=== PATIENT | female | born 1935 | race Caucasian/White ===

== ENCOUNTER → 2017-04-17 | Outpatient (CLI) | payer OTHER, MEDICARE | LOC: FIMAGING 13:35 | PROVIDERS: ATTEND Physical Medicine & Rehabilitation | DX: R90.82 White matter disease, unspecified (principal); M51.36 Other intervertebral disc degeneration, lumbar region; M53.87 Other specified dorsopathies, lumbosacral region; M76.891 Other specified enthesopathies of right lower limb, excluding foot; M76.892 Other specified enthesopathies of left lower limb, excluding foot ==

== ENCOUNTER 2017-06-23 06:55 | Inpatient (IN) | payer OTHER, MEDICARE ==
[~2017-06-23 06:55] MED LIST: DESMOPRESSIN ACETATE 20 MCG in NS 50 ML IV ONE
[2017-06-23] MEDS ORDERED: ceFAZolin 2 GM/SWFI 2 GM/20 ML SYR IVP ONE (07:01)
[2017-06-23] MEDS ORDERED: LR 1,000 ML IV ONE (07:05)
[2017-06-23] MEDS ORDERED: LIDOCAINE 1% 2 ML INJ ID PRN (07:05)
--- NOTE | 2017-06-23 07:40 | CPEKG ---
Heart Rate: 63 RR Interval: 952 P-R Interval: 200 QRSD Interval: 142 QT Interval: 444 QTC Interval: 455 P Nye: 77 QRS Nye: 74 T Wave Nye: -10 EKG Severity - ABNORMAL ECG - EKG Impression: SINUS RHYTHM EKG Impression: RIGHT BUNDLE BRANCH BLOCK Electronically Signed By: Rojas Valerio 24-Jun-2017 09:28:44
[2017-06-23] MEDS ORDERED: SURGIFLO MATRIX KIT WITH THROMBIN 8 ML TP ONE (07:53)
[2017-06-23] MEDS ORDERED: BUPIVACAINE 0.25% 30 ML SDV ONE (07:54)
[2017-06-23] MEDS ORDERED: EPINEPHrine 1 MG/ML INJ ONE (07:54)
[2017-06-23] MEDS ORDERED: CHLORHEXIDINE GLUC HIBICLENS 118 ML BTL TP ONE (07:54)
[2017-06-23] MEDS ORDERED: GENTAMICIN SULFATE 80 MG/2 ML VIAL ONE (07:54)
[2017-06-23] MEDS ORDERED: THROMBIN (BOVINE) 5,000 UNIT VIAL TP ONE (07:54)
--- NOTE | 2017-06-23 08:03 | PDHPUP ---
History & Physical Update H&P update statement: This history and physical update is based on an assessment of the patient which was completed after admission or registration (within 24 hours), but prior to the surgery/procedure. H&P update: H&P reviewed & patient examined, no change in patient's condition since H&P completed
[2017-06-23 08:19] LABS: PLATELET COUNT 247 10^3/uL (150-400)
[2017-06-23] MEDS ORDERED: PROPOFOL/EMULSION 500 MG/50 ML BOTTLE IV ONE (08:19)
[2017-06-23] MEDS ORDERED: MIDAZOLAM 2 MG/2 ML VIAL ONE (08:19)
[2017-06-23] MEDS ORDERED: fentaNYL 250 MCG/5 ML INJ ONE (08:20)
[2017-06-23] MEDS ORDERED: MIDAZOLAM 2 MG/2 ML VIAL IVP ONE (11:11)
[2017-06-23] MEDS ORDERED: HYDROCODONE/APAP 5/325 TAB PO PRN (11:14)
[2017-06-23] MEDS ORDERED: ONDANSETRON 4 MG/2 ML VIAL IVP PRN (11:14)
[2017-06-23] MEDS ORDERED: NALOXONE HCL 0.4 MG/ML INJ IVP PRN (11:14)
[2017-06-23] MEDS ORDERED: DEXAMETHASONE 4 MG/ML VIAL IVP PRN (11:14)
[2017-06-23] MEDS ORDERED: ALBUTEROL 3 ML DEYVIAL IH PRN (11:14)
[2017-06-23] MEDS ORDERED: fentaNYL 100 MCG/2 ML INJ IVP PRN (11:14)
[2017-06-23] MEDS ORDERED: LABETALOL HCL 5 MG/ML 20 ML MDV IVP PRN (11:14)
--- NOTE | 2017-06-23 11:14 | PDANEPAE ---
ANE History of Present Illness 81 year old woman with bipolar disorder for L1-2 and L4-5 decompression to treat severe spinal stenosis. ANE Past Medical History - Cardiovascular History Hx Hypertension: No Hx Arrhythmias: Yes Hx Chest Pain: No Hx Coronary Artery / Peripheral Vascular Disease: No Hx CHF / Valvular Disease: No Hx Palpitations: No Cardiovascular History Comment: heart murmur reported on H&P on from dgtr - Pulmonary History Hx COPD: No Hx Asthma/Reactive Airway Disease: Yes Hx Recent Upper Respiratory Infection: No Hx Oxygen in Use at Home: No Hx Sleep Apnea: No Sleep Apnea Screening Result - Last Documented: Negative Pulmonary History Comment: hx of asthma- nothing recently - Neurologic History Hx Cerebrovascular Accident: No Hx Seizures: No Hx Dementia: No Neurologic History Comment: increase in memory issues/ confusion at times. left leg weakness. headaches - Endocrine History Hx Diabetes: No Endocrine History Comment: thyroid levels are usually on low end of normal, on synthroid to help with energy from medications - Renal History Hx Renal Disorders: Yes Renal History Comment: increase in urine incontinence. over last 6-9 months- wears pad. can't hold urine mostly. hx of uti's - Liver History Hx Hepatic Disorders: No - Neurological & Psychiatric Hx Hx Neurological and Psychiatric Disorders: Yes Neurological / Psychiatric History Comment: bipolar. depression. anxiety - Cancer History Hx Cancer: Yes Cancer History Comment: skin ca removed - Congenital Disorder History Hx Congenital Disorders: No - GI History Hx Gastrointestinal Disorders: Yes Gastrointestinal History Comment: occ constipation- dgtr reports cupboards full of otc products - Other Health History Other Health History: anemia. wears glasses. blind in right eye. eczema- currently no active spots - Chronic Pain History Chronic Pain: Yes (chronic back and bilateral leg) - Surgical History Prior Surgeries: bilateral TKA's. bilateral NAJMA's. hysterectomy. corneal transplant eye surgery. blas KARLEE Review of Systems Review of systems is: negative Review of Systems: - Exercise capacity METS (RN): 3 METS ANE Patient History - Allergies Allergies/Adverse Reactions: codeine Allergy (Verified 06/22/17 14:31) Itching - Home Medications Home Medications: Carboxymethylcellulose 0.5% [Refresh Plus Drops 0.5%] 1 drops EACHEYE DAILY PRN 06/22/17 [Last Taken 06/22/17] Erythromycin 0.5% [Erythromycin 0.5% (RX)] 1 ping EACHEYE HS 06/22/17 [Last Taken 06/22/17] Herbals/Supplements -Info Only 1 ea PO DAILY 06/22/17 [Last Taken 06/22/17] Levothyroxine [Synthroid 50 mcg (*)] 50 mcg PO DAILY06 06/22/17 [Last Taken 06:30] QUEtiapine FUMARATE [Seroquel 300mg (*)] 300 mg PO HS 06/22/17 [Last Taken 06/22] celeCOXIB [Celebrex (*)] 200 mg PO BID 06/22/17 [Last Taken 06/21/17] clonazePAM [Klonopin (*)] 0.5 mg PO Q12H PRN 06/22/17 [Last Taken 06/22/17] clonazePAM [Klonopin (*)] 0.5 mg PO QID 06/22/17 [Last Taken 06/23/17 06:30] lamoTRIgine [LamICTAL 100 MG (*)] 400 mg PO HS 06/22/17 [Last Taken 06/22/17] - NPO status NPO Since - Liquids (Date): 06/23/17 NPO Since - Liquids (Time): 23:59 NPO Since - Solids (Date): 06/22/17 NPO Since - Solids (Time): 19:30 - Smoking Hx Smoking Status: Former smoker - Family Anes Hx Family Hx Anesthesia Complications: none ANE Labs/Vital Signs - Labs Result Diagrams: 06/23/17 08:10 - Vital Signs Blood Pressure: 129/65 Heart Rate: 64 Respiratory Rate: 18 O2 Sat (%): 94 Height: 157.48 cm Weight: 66.678 kg ANE Physical Exam - Airway Neck exam: decreased ROM Mallampati Score: Class 2 Mouth exam: normal dental/mouth exam - Pulmonary Pulmonary: no respiratory distress - Cardiovascular Cardiovascular: regular rate and rhythym - ASA Status ASA Status: III ANE Anesthesia Plan Anesthesia Plan: general endotracheal anesthesia
[2017-06-23] MEDS ORDERED: CARBOXYMETHYLCELLULOSE 0.5% 0.4 ML DROPERETTE EACHEYE PRN (11:20)
[2017-06-23] MEDS ORDERED: diphenhydrAMINE 25 MG CAP PO PRN (11:21)
[2017-06-23] MEDS ORDERED: BISACODYL 10 MG SUPP PR PRN (11:21)
[2017-06-23] MEDS ORDERED: LACTULOSE 20 GM/30 ML UDCUP PO PRN (11:21)
[2017-06-23] MEDS ORDERED: MAGNESIUM HYDROXIDE 30 ML UDCUP PO PRN (11:21)
[2017-06-23] MEDS ORDERED: NS W/ 20 KCl/L 1,000 ML IV SCH (11:30)
--- NOTE | 2017-06-23 11:41 | POSTOPPROG ---
Post Op Note Date of Operation: 06/23/17 Surgeon: Angy Minor Hip Hop Dance Instructor: Annette Miranda PA-C Anesthesiologist: Dr. Rocha Anesthesia: GET(General Endotracheal) Pre-op Diagnosis: Lumbar stenosis Post-op Diagnosis: Lumbar stenosis Procedure: L1/2 and L4/5 decompression Inf/Abcess present in the surg proc area at time of surgery?: No Depth: Deep Incisional (Fascial) EBL: Minimal Plan Plan: 81 yo female s/p leftL1/2 and L4/5 decompression - neuro checks - pain control - advance diet as tolerated - PT/OT - discharge home likely tomorrow Exam Awake. Alert Following commands strength full
--- NOTE | 2017-06-23 11:42 | GOP ---
[f rep st] OPERATIVE REPORT DATE OF OPERATION: 06/23/2017 SURGEON: Angy Minor DO NEUROSURGEON: Angy Minor DO BUSINESS REPORTING DEVELOPER: ROMAINE Patrick PREOPERATIVE DIAGNOSIS: 1. Critical stenosis. 2. Lumbago. 3. Spondylosis. 4. Urinary incontinence. POSTOPERATIVE DIAGNOSIS: 1. Critical stenosis. 2. Lumbago. 3. Spondylosis. 4. Urinary incontinence. PROCEDURE PERFORMED: 1. L4-5 left micro decompression corey laminectomy, foraminotomy and micro decompression, through a s eparate incision L1 to hemilaminotomy micro decompression foraminotomy left. 2. Microscope. FINDINGS: SPECIMENS: None. ESTIMATED BLOOD LOSS: 15 mL. INDICATIONS: This is an 81-year-old female, who has 3 months of urinary incontinence. Her leg buckl es, although she has no static weakness. She has back pain. She was offered a micro decompression a t L1-2, a hemilaminectomy and micro decompression at L1-2 and L4-5, where she had critical stenosis a t both levels. She elected to move forward. Extensive discussion was held with her and several of h er family members regarding risks, benefits, alternatives and expected outcomes. She elected to move forward as today. DESCRIPTION OF PROCEDURE: She was identified, consented. Sites were marked. Brought to the operati ng room, anesthetized under general endotracheal tube anesthesia, rolled onto the OR bed with a Wil n frame. All pressure points were appropriately padded. Incision sites were marked with the 18-gaug e spinal needle and x-ray. L4-5 was approached 1st. Incision was anesthetized with 0.5% Marcaine wi th epinephrine. Incision was made with a 10 blade. Hemostasis was obtained with Bovie and bipolar c autery, dissecting down onto the laminae of L4 and L5. ShadowLine retractor was placed and [place] 4 was placed, verifying that we were at the appropriate level. Brought in the microscope. Using a h igh-speed drill, created a laminectomy at L4 and L5, opening the ligamentum flavum with a ball-tip pr obe and using 2 and 3 Kerrisons extended this until we had a generous foraminotomy. We had undercut the lamina and verified under x-ray that we had decompressed pedicle to pedicle. We then copiously i rrigated with gentamicin infused saline. Meticulous hemostasis was obtained with FloSeal and bipolar cautery, and then we removed the ShadowLine retractor, removed the microscope, closed the fascia wit h 0 Vicryl pop-offs, subcutaneous layer with 2-0 Vicryl pop-offs, cutaneous layer with 3-0 Vicryl pop -offs. The skin was closed with a 4-0 running Monocryl. We covered this then with gauze and moved u p and, under a separate incision anesthetized with 0.5% Marcaine with epinephrine, incision was made with a 10 blade. Hemostasis was obtained with Bovie and bipolar cautery, dissecting down onto the la minae of L1-2. ShadowLine retractor was measured and placed, and the [place] 4 was placed. Did caden e an x-ray, x-ray verified we were at the appropriate level. The microscope was brought, in using hi gh-speed drill performed a hemilaminectomy at L1-2, opening the ligamentum flavum with a ball-tip pro be and using 2 and 3 Kerrisons to extend this until we had generous foraminotomy, and we were decompr essed again under x-ray pedicle to pedicle. We then undercut the lamina at the midline. We then obt ained meticulous hemostasis with FloSeal, and copiously irrigated with over a liter of gentamicin-inf used saline. Removed the ShadowLine retractor. Closed the fascia with 0 Vicryl pop-offs, subcutaneo us layer with 2-0 Vicryl pop-offs, cutaneous layer with 3-0 Vicryl pop-offs. The skin was closed wit h 4-0 running Monocryl. Both wounds were dressed with Steri strips, gauze and Tegaderm. Patient gisselle erated the procedure well. Neuro monitoring remained stable. There were no complications. FLUIDS: 1100 mL of crystalloid. URINE OUTPUT: None. DRAINS: None. COMPLICATIONS: None. /[id number]/MODL
[2017-06-23] MEDS ORDERED: fentaNYL 100 MCG/2 ML INJ ONE (11:56)
--- NOTE | 2017-06-23 12:03 | POSTANESTH ---
Post Anesthetic Evaluation Cardiovascular Status: Normal, Stable Respiratory Status: Normal, Stable Level of Consciousness/Mental Status: Mildly Sleepy, Arousable Pain Control: Adequate, Prn Tx Ordered Nausea/Vomiting Control: Adequate, Prn Tx Ordered Complications Possibly Related to Anesthesia: None Noted
[2017-06-23] MEDS: ACETAMINOPHEN 500 MG TAB PO SCH ×2 (14:29→21:22)
[2017-06-23] MEDS: traMADol 50 MG TAB PO PRN (15:57)
[2017-06-23] MEDS: clonazePAM 0.5 MG TAB PO SCH ×2 (15:57→21:22)
[2017-06-23] MEDS: ceFAZolin 2 GM/DEXTROSE 100 ML IV SCH (17:21)
[2017-06-23] MEDS: ERYTHROMYCIN 0.5% 1 GM OPHT.OINT EACHEYE SCH (21:21)
[2017-06-23] MEDS: lamoTRIgine 100 MG TAB PO SCH (21:22)
[2017-06-23] MEDS: QUEtiapine FUMARATE 300 MG TAB PO SCH (21:22)
[2017-06-23] MEDS: SENNOSIDES/DOCUSATE SODIUM TAB PO SCH (21:22)
[2017-06-24] MEDS: ceFAZolin 2 GM/DEXTROSE 100 ML IV SCH (00:14)
[2017-06-24] MEDS: traMADol 50 MG TAB PO PRN ×4 (03:09→23:23)
[2017-06-24] MEDS: ACETAMINOPHEN 500 MG TAB PO SCH ×3 (05:05→21:53)
[2017-06-24] MEDS: clonazePAM 0.5 MG TAB PO SCH ×4 (05:05→19:52)
[2017-06-24] MEDS: LEVOTHYROXINE 50 MCG TAB PO SCH (05:05)
--- NOTE | 2017-06-24 09:35 | NEUSURGPN ---
Date of Surgery: 06/23/17 Post Op Day: 1 Assessment/Plan: Assessment: 81 yo female s/p left L1/2 and L4/5 decompression POD #1 Plan: -neuro checks as ordered -continue with current pain control plan -advance diet as tolerated -pt with need for SNF per PT -likely will need 3 night stay for placement -continue with PT/OT -call with any questions or concerns -pt understands and agrees Subjective: Awake and alert. No new events overnight. No langston/neck/chest/abd or gu complaints. No f/c/n/v/d. Objective: AAO x 3, PERRLA/EOMI no droop CN 2-12 grossly intact +lt touch 5/5 BUE/BLE = CDI Neuro Check Frequency: per routine Urinary Catheter in Place: No - Physician Discussed Patient with DrMonica: Iván Neurosurgery Physical Exam - Vitals, I&O, Labs I and O 06/23/17 06/24/17 06/25/17 05:59 05:59 05:59 Intake Total 1650 Output Total 715 Balance 935 Weight 66.678 kg 66.678 kg Intake: Oral (ml) 550 IV Intake (ml) 1100 Output: Urine (ml) 700 Bedside Commode 700 Estimated Blood Loss (ml) 15 Other: Intake Quantity Yes Sufficient Number of Voids Bedside Commode 3 Vital Signs Temp Pulse Resp BP Pulse Ox 36.9 C 71 17 102/59 L 92 06/24/17 08:00 06/24/17 08:00 06/24/17 08:00 06/24/17 08:00 06/24/17 08:00 Laboratory Results 06/23/17 08:10 ICD10 Worksheet Patient Problems: Problems Problem Status Onset Lumbago Acute Lumbar stenosis Acute - ICD10 Problem Qualifiers (1) Lumbago (2) Lumbar stenosis
--- NOTE | 2017-06-24 09:57 | PDMN ---
Medical Necessity Medical necessity: C/M review: est. > 2 MN LOS for eval and TX of lumbar stenosis requiring 06/23/2017 surgery - L1 /l2 and L4 / L5 decompression, acute and persistent postop pain, generalized weakness, decreased mobility, new requirement for assist with ambulation and ADLs, requiring ongoing neuro checks , pain control management with multiple medications, acute inpt PT/OT per 2017 Neurosurgical progress note.
[2017-06-24] MEDS: ENOXAPARIN 40 MG/0.4 ML SYR SC SCH (10:09)
[2017-06-24] MEDS: SENNOSIDES/DOCUSATE SODIUM TAB PO SCH ×2 (10:09→19:52)
--- NOTE | 2017-06-24 13:48 | ASMTCMCOM ---
CM Note CM Note Notes: CM chart review. Patient is a 81 y/o female s/p left L1/2 and L4/5 decompression POD #1. PT and OT recommending SNF. CM to follow. Date Signed: 06/24/2017 01:47 PM Electronically Signed By:Esperanza Britton
[2017-06-24] MEDS: ONDANSETRON DISINTEGRATING 4 MG TAB PO PRN (19:52)
[2017-06-24] MEDS: QUEtiapine FUMARATE 300 MG TAB PO SCH (19:52)
[2017-06-24] MEDS: ERYTHROMYCIN 0.5% 1 GM OPHT.OINT EACHEYE SCH (19:52)
[2017-06-24] MEDS: lamoTRIgine 100 MG TAB PO SCH (19:52)
[2017-06-25] MEDS: clonazePAM 0.5 MG TAB PO SCH ×4 (05:44→20:02)
[2017-06-25] MEDS: LEVOTHYROXINE 50 MCG TAB PO SCH (05:44)
[2017-06-25] MEDS: ACETAMINOPHEN 500 MG TAB PO SCH ×3 (05:45→23:07)
--- NOTE | 2017-06-25 09:09 | NEUSURGPN ---
Date of Surgery: 06/23/17 Post Op Day: 2 Assessment/Plan: Assessment: 81 yo female s/p left L1/2 and L4/5 decompression POD #2 Plan: -neuro checks as ordered -RN called with AMS and ordered a BMP with Na of 116 -hospitalists consulted -transfer to ICU -UA/urine osm/Urine Na ordered that IM will follow up on -continue with current pain control plan -advance diet as tolerated -pt with need for SNF per PT -continue with PT/OT -call with any questions or concerns -pt understands and agrees Subjective: Awake and alert. Pt with some confusion now. No langston/neck/chest/abd or gu complaints. No f/c/n/v/d. Objective: AAO, PERRLA/EOMI no droop CN 2-12 grossly intact +lt touch 5/5 BUE/BLE = CDI Neuro Check Frequency: per routine Urinary Catheter in Place: No - Physician Discussed Patient with : Iván Neurosurgery Physical Exam - Vitals, I&O, Labs I and O 06/24/17 06/25/17 06/26/17 05:59 05:59 05:59 Intake Total 1650 1470 Output Total 715 1500 200 Balance 935 -30 -200 Weight 66.678 kg Intake: Oral (ml) 550 1470 IV Intake (ml) 1100 Output: Urine (ml) 700 1500 200 Bedside Commode 700 1500 200 Estimated Blood Loss (ml) 15 Other: Intake Quantity Yes Yes Sufficient Number of Voids Bedside Commode 3 5 Post Void Residual Scan Volume (ml) Bedside Commode 238 Vital Signs Temp Pulse Resp BP Pulse Ox 36.8 C 78 16 132/63 H 98 06/25/17 08:00 06/25/17 08:00 06/25/17 08:00 06/25/17 08:00 06/25/17 08:00 Laboratory Results 06/23/17 08:10 06/25/17 07:55 ICD10 Worksheet Patient Problems: Problems Problem Status Onset Lumbago Acute Lumbar stenosis Acute - ICD10 Problem Qualifiers (1) Lumbago (2) Lumbar stenosis
--- NOTE | 2017-06-25 11:07 | GCON ---
[f rep st] CONSULTATION CONSULTING QUESTION: Management of hyponatremia. HISTORY OF PRESENT ILLNESS: This is an 81-year-old female, who presented 06/23/2017, for lumbar spin e surgery. The patient had been reporting gait disturbances, increased urinary incontinence over the course of the preceding 6-9 months. Per family's report and the patient, she has had shuffling gait and gait disturbance. The patient had an uncomplicated L4-5 decompression. Was noted today, postop eratively, to be more somnolent. Basic labs were drawn and serum sodium was noted to be 116. Margy prince, on my examination, denies any notable pain. Is reporting some nausea, which began in the last 24 hours, and she does describe feeling sleepier than usual. Daughter at bedside also reports the patie nt seems more somnolent than she had been in the preceding 24 hours. Patient denies any change in he r urinary incontinence. Typically has constipation in the outpatient setting for which she uses stoo l softeners. Denies any chest pain. Denies any shortness of breath. Denies any active headaches. Denies any numbness or tingling. Patient has chronically been treated for bipolar disorder. Denies any recent changes in her outpatient medications. Patient has also been seen by Neurology and recent ly worked up for dementia. That workup to this point, has been negative. PAST MEDICAL HISTORY: 1. Bipolar disorder. 2. Chronic urinary incontinence. 3. Lumbar stenosis. SOCIAL HISTORY: Negative for tobacco, alcohol, or illicit drugs. FAMILY HISTORY: Negative for bipolar disorder. REVIEW OF SYSTEMS: A 10-point review of systems is negative with the exception of that reported in t he HPI. PHYSICAL EXAMINATION: VITAL SIGNS: Blood pressure 132/63,, heart rate 78, respiratory rate 16 satur ating 98% on 1 L, 36.8. GENERAL: This is a healthy-appearing elderly female lying comfortably in be d. HEENT: Notable for moist mucous membranes. Eye exam is negative for any icterus. CARDIAC: Pat ient is regular rate and rhythm. PULMONARY: She is clear to auscultation bilaterally. GASTROINTEST INAL: Positive bowel sounds. ABDOMEN: Soft and nontender. MUSCULOSKELETAL: Negative for any lowe r extremity edema. SKIN: Negative for any rashes. NEUROLOGIC: Patient is somnolent on my examinat ion, but oriented x3. Sensation is intact throughout. Strength is 5/5 of the bilateral upper and lo wer extremities. PSYCHIATRIC: She is cooperative on interview and examination. DATA: White count 5.07, hematocrit 37.2, platelets of 247. Serum sodium 116, last checked in 2016 w as 133. Creatinine 0.5. Blood glucose 108. EKG, which I personally reviewed and interpreted, shows sinus rhythm, normal axis, right bundle branch block, with no acute ST-T changes. Chest x-ray, dank mehta I personally reviewed and interpreted, shows no acute infiltrates or edema. ASSESSMENT AND PLAN: This is an 81-year-old female with hyponatremia. 1. Severe hyponatremia. Serum sodium was 116. On review of previous labs, it appears that her seru m sodium may be chronically low, last checked 133. On review of medications with Pharmacy, patient tyson as received 1 L of lactated Ringer's intraoperatively, otherwise has not received other hypotonic flu ids. Very possible that this is subacute in nature with a more acute drop related to her postoperati ve state. Have ordered stat urine studies, including osmolality and sodium. Will additionally consu lt the telescope repairer, as the patient does appear somnolent on examination. We may need to actively tr eat with hypertonic saline. I have ordered a stat repeat of her serum sodium for additional data poi nts to establish whether her sodium is stable or dropping. Will not give additional IV fluids at thi s time until we obtain additional data. 2. Bipolar disorder. Pharmacy has reviewed her medications. None of her chronic medications are kn own to contribute to hyponatremia. We will continue these without alteration. 3. Prophylaxis with Lovenox. 4. Diet: Regular. 5. Disposition: Patient has severe electrolyte abnormalities requiring close monitoring in the ICU. I discussed the case with Dr. Serjio Reddy from Nephrology. He will consult and assist in the diagn ostic workup and management of this hyponatremia. /[id number]/MODL
[2017-06-25] MEDS: ONDANSETRON 4 MG/2 ML VIAL IVP PRN (11:25)
[2017-06-25] MEDS: SENNOSIDES/DOCUSATE SODIUM TAB PO SCH ×2 (13:02→20:01)
[2017-06-25] MEDS: ENOXAPARIN 40 MG/0.4 ML SYR SC SCH (13:03)
--- NOTE | 2017-06-25 13:03 | GCON ---
[f rep st] CONSULTATION DATE OF CONSULTATION: 06/25/2017 REFERRING PHYSICIAN: Jesi Foley MD REASON: Severe hyponatremia. HISTORY OF PRESENT ILLNESS: The patient is an 81-year-old female who was admitted for elective lumba r laminectomy, which she underwent [address] Angy Minor. She was more somnolent today, a nd on lab testing was noted to have sodium of 116. She was moved to the ICU. We were asked to consu lt to evaluate and manage hyponatremia. History is taken from discussion with Dr. Foley, review of the medical record, and discussion with the patient's daughter, all which I summarize here. She did have a sodium level of 133 in our system in 2012. I do not have any recent labs since that time. Her daughter reports that she does have a tendency to drink 10 or more cups of coffee per day. She has bipolar disorder and takes Seroquel and Lamictal. She has had lower extremity weakness leading to her surgery. She denies prior knowledge of low blood sodium levels, cancer, heart disease. She has had some nausea since yesterday, but kim es any pain at this time. PAST MEDICAL HISTORY: Bipolar disorder, chronic urinary incontinence, lumbar stenosis. SOCIAL HISTORY: She is nonsmoker and does not drink alcohol or use drugs. She moved in with her [facility] approximately 3 years ago. FAMILY HISTORY: Noncontributory. MEDICATIONS: Seroquel 300 mg at night, Klonopin 0.5 mg four times daily, Lamictal 40 mg at night, Sy nthroid 50 mcg daily, morphine sulfate p.r.n., Lovenox subcu. REVIEW OF SYSTEMS: See HPI. Otherwise, 10 system review negative in detail. PHYSICAL EXAMINATION: VITAL SIGNS: In's and out's: She just had a bladder scan revealing 500 cc of retained urine. In the previous 24 hours, she had 1.45 L in and 1.5 L out via urine. 132/63, pulse 78, respiration rate is 16, saturating 98% on 1 L nasal cannula, with temp 36.8 degrees Celsius. GE NERAL: This is a pleasant elderly female in bed, in no acute distress. NEUROLOGIC: Nonfocal. Her daughter answers most of the questions. No tremors. No gross focal deficits. Extraocular movements intact. HEENT: Oral mucosa is moist. NECK: No lymphadenopathy. Jugular venous distention is ping roximately 8 cm at a 60 degrees angle. HEART: Regular rate and rhythm with 1/6 systolic murmur. No gallops or rubs. LUNGS: Clear to auscultation bilaterally. ABDOMEN: Soft, nontender, nondistende d. LOWER EXTREMITIES: With trace pitting edema. Posterior tibial pulses 1+ bilaterally. SKIN: Wi thout rashes. MUSCULOSKELETAL: No gross joint swelling or deformities. LABORATORY/IMAGING: Sodium is 116, potassium 4.1, chloride 84, CO2 25, BUN 8, creatinine 0.5, calciu m 7.6. White count 5, hemoglobin 12.5, platelets 247. Urinalysis was negative. Urine sodium 96, os molality 454. Chest x-ray from 2 days ago, which I personally reviewed, was clear without any infiltrates, cardiome ford, or pulmonary edema. IMPRESSION/PLAN: 1. This is severe hyponatremia. Her clinical course is suggestive of postoperative syndrome of inap propriate antidiuretic hormone secretion, probably related to nausea or possibly pain. She does have underlying bipolar disorder and is on mood stabilizing medicine. She has a very high fluid intake, especially of coffee at home. It is possible that she has some baseline low sodium. Her sodium was 133 in 2013. 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 She does appear euvolemic, if not slightly volume up. I will check a TSH. Check cor tisol. Chest x-ray negative. I am not aware of a smoking history. We will restrict her fluids to 1 L per day and start her on salt tablets [address] I will place a Landa to monitor urine output as she could have rapid correction if her nausea or pain improve and she loses her ADH stimulus. The go al would be a sodium level of 122 by tomorrow morning and then 128 to 130 the next day. This was all discussed in detail with her daughter. 2. Spinal stenosis, status post lumbar laminectomy postop day 2. She otherwise seems to be recoveri ng well. 3. Lethargy. I am not sure if she was worse this morning, but currently, she is alert and conversiv e. Her memory is a little bit impaired, but I do believe she may have some history of dementia. Whit cosbyy, her low sodium could be contributing to her mental status. 4. Hypothyroidism. Check TSH. She is on Synthroid and will continue with her current dose. Thank you for this consultation. /[id number]/MODL
[2017-06-25] MEDS: DESMOPRESSIN ACETATE 4 MCG/ML INJ SC SCH (17:00)
[2017-06-25] MEDS ORDERED: D5W 200 ML IV ONE (17:00)
--- NOTE | 2017-06-25 17:08 | GHP ---
[f rep st] HISTORY AND PHYSICAL DATE OF ADMISSION: 06/23/2017 REFERRING PHYSICIAN: Jesi Foley MD PULMONARY/CRITICAL CARE CONSULTATION REASON FOR REFERRAL: Evaluation and management of hyponatremia. HISTORY OF PRESENT ILLNESS: Ms. Chen is an 81-year-old woman who underwent an elective lumbar hansen inectomy on June 23. Her preoperative labs included a CBC, but no chemistry tests. She is a bit more somnolent today and had lab testing, which found a sodium level of 116. She was transferred to the ICU for management of her hyponatremia. The last sodium level we have on her was 133 in 2012. She a pparently tends to drink a large amount of coffee every day. The patient had some nausea, but no vom iting. Been has been taking p.o. here in the hospital. She denies any headache or weakness. PAST MEDICAL HISTORY: 1. Bipolar disorder. 2. Chronic urinary incontinence. 3. Lumbar stenosis. MEDICATIONS: At the time of admission include: 1. Seroquel. 2. Klonopin. 3. Lamictal. 4. Synthroid. 5. Morphine. 6. Lovenox. ALLERGIES: Codeine. SOCIAL HISTORY: The patient is nonsmoker. Does not use alcohol, but does drink a lot of coffee. Javed valadez lives with her daughter. FAMILY HISTORY: Unremarkable. REVIEW OF SYSTEMS: A 10-point Review of Systems adds nothing to the History of Present Illness. PHYSICAL EXAMINATION: GENERAL: The patient is awake, alert, and in no acute distress. VITAL SIGNS: Her blood pressure is 132/54, with a heart rate of 65. She is afebrile. Oxygen saturations are 95 % on 1 L. HEENT: Normocephalic and atraumatic. No icterus. NECK: No JVD. Trachea is midline. C HEST: Clear to auscultation. CARDIAC: Regular rate and rhythm without murmur. ABDOMEN: Soft and nontender. Bowel sounds are present. EXTREMITIES: No clubbing, cyanosis, or edema. NEURO: The rafael santiago is awake and alert. She has no gross motor or sensory deficits, with the exception of some mil d leg weakness. LABORATORY: A hemoglobin preoperatively was 12.5. A sodium is 116, unchanged from 4-hours earlier. Chloride is 84. An anion gap is 7, glucose is 96, down from 244 earlier. Calcium is 7.6. Urine so dium is high at 96. Urine osmolality is 454. A preoperative chest x-ray from June 23 shows clear lung mario with no other abnormalities. Images r eviewed by me. ASSESSMENT: Hyponatremia. This is severe. This may all have occurred postoperatively, although it is possible that her preoperative sodium was low as well. The high urinary sodium suggests syndrome of inappropriate anti-diuretic hormone, pressure related to her postoperative state and pain. Noneth eless, I think we need to assume that her sodium is chronically low for the purposes of determining t he appropriate rate of correction. RECOMMENDATIONS: 1. Fluid restriction to 1 L a day. 2. Start salt tablets as per Nephrology. 3. A Landa has been placed. 4. Goal of raising her sodium level by 6 to 8 mEq over the next 24-hours. /[id number]/MODL
[2017-06-25] MEDS ORDERED: SODIUM CHLORIDE 1,000 MG TAB PO SCH (18:00)
[2017-06-25] MEDS: ERYTHROMYCIN 0.5% 1 GM OPHT.OINT EACHEYE SCH (20:02)
[2017-06-25] MEDS: QUEtiapine FUMARATE 300 MG TAB PO SCH (20:02)
[2017-06-25] MEDS: lamoTRIgine 100 MG TAB PO SCH (20:02)
[2017-06-25] MEDS ORDERED: NS 250 ML IV SCH (23:30)
[2017-06-26] MEDS ORDERED: D5W 1,000 ML IV SCH (04:00)
[2017-06-26] MEDS ORDERED: D5W 250 ML IV ONE (04:00)
[2017-06-26] MEDS: DESMOPRESSIN ACETATE 4 MCG/ML INJ SC SCH (04:43)
[2017-06-26] MEDS: ACETAMINOPHEN 500 MG TAB PO SCH ×3 (05:29→22:26)
[2017-06-26] MEDS: LEVOTHYROXINE 50 MCG TAB PO SCH (05:29)
[2017-06-26] MEDS: clonazePAM 0.5 MG TAB PO SCH ×4 (06:22→20:00)
--- NOTE | 2017-06-26 08:04 | NEUSURGPN ---
Date of Surgery: 06/23/17 Post Op Day: 3 Assessment/Plan: Assessment: 81 yo female s/p left L1/2 and L4/5 decompression POD #3 Plan: -neuro checks as ordered -AMS this weekend with Na of 116, transferred to ICU. Appreciate NA management with medicine/crit care -continue with current pain control plan -advance diet as tolerated -pt with need for SNF per PT -continue with PT/OT -call with any questions or concerns -Patient was discussed with Dr Minor who will see her this morning as well Subjective: Incisional pain Objective: AAO, PERRLA/EOMI no droop CN 2-12 grossly intact +lt touch 5/5 BUE/BLE = Dressing x2 CDI Neuro Check Frequency: per routine Urinary Catheter in Place: Yes Urinary Catheter Indication: Acute Urinary Retention Catheter Insertion Date: 06/25/17 - Physician Discussed Patient with Dr.: Minor Patient Seen by : Iván Neurosurgery Physical Exam - Vitals, I&O, Labs I and O 06/25/17 06/26/17 06/27/17 05:59 05:59 05:59 Intake Total 1470 1164 Output Total 1500 3090 Balance - Intake: Oral (ml) 1470 300 IV Intake (ml) 250 IV Infused (ml) 614 D5w 1,000 ml @ 125 mls/hr 414 IV CONT ANNALISA Rx#: [id number] D5w 200 ml @ 200 mls/hr 200 IV ONCE ONE Rx#: [id number] Output: Urine (ml) 1500 3090 Bedside Commode 1500 900 Catheter 2190 Other: Intake Quantity Yes Sufficient Number of Voids Bedside Commode 5 Incontinence 1 Post Void Residual Scan Volume (ml) Bedside Commode 238 500 Vital Signs Temp Pulse Resp BP Pulse Ox 36.6 C 63 15 114/64 94 06/26/17 00:00 06/26/17 06:00 06/26/17 06:00 06/26/17 06:00 06/26/17 06:00 Laboratory Results 06/26/17 02:56 06/26/17 06:45 ICD10 Worksheet Patient Problems: Problems Problem Status Onset Lumbago Acute Lumbar stenosis Acute
--- NOTE | 2017-06-26 09:47 | SOAPPROG ---
SOAP Progress Note Assessment/Plan: Assessment/Plan: Hyponatremia: labs consistent with SIADH, seems to now be correcting quickly. Her sodium is at goal today at 122 from 116 yesterday am. - Will liberalize fluid restriction to 1800ml. - Will stop D5W. - Will continue to monitor sodium q4h. - Goal sodium tomorrow am is 128-130. Subjective: No acute events overnight. Pt states that she is feeling better today, a little tired but alert, nausea subsiding, better appetite today. She denies any pain. Her sodium starting going up quickly overnight, required DDAVP and D5W. Objective: Vital Signs Temp Pulse Resp BP Pulse Ox 36.6 C 62 14 109/55 L 95 06/26/17 00:00 06/26/17 08:00 06/26/17 08:00 06/26/17 08:00 06/26/17 08:00 Laboratory Results 06/26/17 02:56 06/26/17 06:45 06/25/17 06/26/17 06/27/17 05:59 05:59 05:59 Intake Total 1470 1164 Output Total 1500 3090 Balance -30 -1926 General: alert and oriented, no acute distress Eyes: EOMI, PERRL OP: Clear CV: RRR Resp: nonlabored respirations Abd: Soft, NT/ND Ext: no edema Neuro: CN II-XII Grossly intact Psych: cooperative, appropriate mood and affect ICD10 Worksheet Patient Problems: Problems Problem Status Onset Lumbago Acute Lumbar stenosis Acute
[2017-06-26] MEDS: ENOXAPARIN 40 MG/0.4 ML SYR SC SCH (09:54)
[2017-06-26] MEDS: SENNOSIDES/DOCUSATE SODIUM TAB PO SCH ×2 (09:54→20:00)
[2017-06-26] MEDS ORDERED: PNEUMOC 13-VAL CONJ-DIP CRM/PF 0.5 ML SYR IM ONE (09:58)
--- NOTE | 2017-06-26 13:18 | PDINTPN ---
Di[facility] Progress Note Assessment/Plan: Assessment/plan: 81 F s/p elective lumbar laminectomy 06/23/17 complicated y altered mental status and found to have sodium 116. Not clear if this was acute or chronic but treated with fluid restriction and careful monitoring with renal guidance. She corrected somewhat quickly and did require one dose of DDAVP, but otherwise has improved. Her son reported issues of alcoholism and drug dose manipulation with a variety of providers and was concerned her outpatient dosages were inaccurate. * Hyponatremia consistent with SIADH and is correcting appropriately. * Bipolar disorder treated with seroquel, klonopin, and lamictal. She may benefit from a behavioral health consult to clarify not only the appropriate doses but management as an outpatient. * Hx of alcohol- no signs of wd here Subjective: no complaints Objective: Vital Signs Temp Pulse Resp BP Pulse Ox 37.1 C 66 20 129/46 H 97 06/26/17 12:00 06/26/17 12:00 06/26/17 12:00 06/26/17 12:00 06/26/17 12:00 Laboratory Results 06/26/17 02:56 06/26/17 11:19 06/25/17 06/26/17 06/27/17 05:59 05:59 05:59 Intake Total 1470 1164 Output Total 1500 3090 Balance -30 -1926 Physical Exam - Physical Exam General Appearance: alert, no apparent distress EENT: PERRL/EOMI Neck: supple Respiratory: lungs clear, normal breath sounds, No respiratory distress Cardiac/Chest: regular rate, rhythm, No edema Abdomen: non-tender, soft, No distended Skin: normal color, warm/dry, No cyanosis Lymphatic: no adenopathy Extremities: No pedal edema Neuro/Psych: alert, normal mood/affect, oriented x 3 ICD10 Worksheet Patient Problems: Problems Problem Status Onset Lumbago Acute Lumbar stenosis Acute
--- NOTE | 2017-06-26 15:06 | ASMTCMCOM ---
CM Note CM Note Notes: Met with patient to ask some questions about her PLOF. She lives independently at the [facility]. She has home PT services through [facility]. Her PCP is Cordelia Hernandez with [facility] (home visits once a week) and her psychiatrist is Dr Reza Roca. She realizes that she might need an increased level of care, and she defers to her daughter Tammy on these matters. We'll have a family meeting with patient and some of her adult children tomorrow; discharge planning will certainly be a topic of discussion. Date Signed: 06/26/2017 03:06 PM Electronically Signed By:Edna Villasenor RN
--- NOTE | 2017-06-26 15:52 | HOSPPROG ---
Hospitalist Progress Note Assessment/Plan: # Acute hyponatremia - 116 post-op with somnolence - markedly more clear this am work up consistent with SIADH - fluid restricted to 1L overnight - corrected to 122 this am oxygen saturations 97% on 1.5L - liberalizing fluid restriction - cont Q4 hour Na checks # Bipolar disorder - continue home meds # lumbar stenosis - s/p decompression - management per NSG - agree with Rehab dispo # proph - Lovenox # diet- regular with 1800ml fluid restriction # dispo - > 2MN as requires close monitoring of sodium correction I have discussed the case with RN - pt clearer this am - will encourage activity and PO intake today Subjective: feeling better today Objective: Vital Signs Temp Pulse Resp BP Pulse Ox 37.1 C 66 20 129/46 H 97 06/26/17 12:00 06/26/17 12:00 06/26/17 12:00 06/26/17 12:00 06/26/17 12:00 Laboratory Results 06/26/17 02:56 06/25/17 06/26/17 06/27/17 05:59 05:59 05:59 Intake Total 1470 1164 Output Total 1500 3090 Balance - - Physical Exam Constitutional: no apparent distress, chronically ill appearing Eyes: anicteric sclera Ears, Nose, Mouth, Throat: moist mucous membranes Cardiovascular: regular rate and rhythym Respiratory: no respiratory distress Gastrointestinal: normoactive bowel sounds Genitourinary: no bladder fullness Skin: warm Musculoskeletal: No asymmetric calves Neurologic: AAOx3 Psychiatric: interacting appropriately Lymph, Heme, Immunologic: no cervical LAD ICD10 Worksheet Patient Problems: Problems Problem Status Onset Lumbago Acute Lumbar stenosis Acute
[2017-06-26] MEDS: ONDANSETRON DISINTEGRATING 4 MG TAB PO PRN (17:56)
[2017-06-26] MEDS: ERYTHROMYCIN 0.5% 1 GM OPHT.OINT EACHEYE SCH (20:00)
[2017-06-26] MEDS: QUEtiapine FUMARATE 300 MG TAB PO SCH (20:00)
[2017-06-26] MEDS: lamoTRIgine 100 MG TAB PO SCH (20:00)
[2017-06-27] MEDS ORDERED: SODIUM CHLORIDE 1,000 MG TAB PO ONE (00:15)
[2017-06-27] MEDS: clonazePAM 0.5 MG TAB PO SCH ×4 (05:46→20:53)
[2017-06-27] MEDS: LEVOTHYROXINE 50 MCG TAB PO SCH (05:46)
[2017-06-27] MEDS: ACETAMINOPHEN 500 MG TAB PO SCH ×3 (05:46→22:47)
--- NOTE | 2017-06-27 07:19 | NEUSURGPN ---
Assessment/Plan: Assessment: 81 yo female s/p left L1/2 and L4/5 decompression POD #4 Plan: -neuro checks as ordered -AMS this weekend with Na of 116, transferred to ICU. Appreciate NA management with medicine/crit care. Now med surg status. Being treated for SIADH -continue with current pain control plan -pt with need for SNF per PT -continue with PT/OT -TEDs, SCDs, lovenox 40mg day -call with any questions or concerns -Patient was discussed with Dr Minor -Dispo to SNF once cleared by IM Subjective: Pt resting in bed, states back pain is a 5/10 and waiting for medicine to kick in. Denies leg pain or numbness Objective: AAOx3 NAD VSS MAEx4 Motor 5/5 BLE Incision dressed cdi +LT Urinary Catheter in Place: No Catheter Insertion Date: 06/25/17 Neurosurgery Physical Exam - Vitals, I&O, Labs I and O 06/26/17 06/27/17 06/28/17 05:59 05:59 05:59 Intake Total 1164 1000 Output Total 3090 1300 Balance -1926 -300 Intake: Oral (ml) 300 1000 IV Intake (ml) 250 IV Infused (ml) 614 D5w 1,000 ml @ 125 mls/hr 414 IV CONT ANNALISA Rx#: [id number] D5w 200 ml @ 200 mls/hr 200 IV ONCE ONE Rx#: [id number] Output: Urine (ml) 3090 1300 Bedside Commode 900 Catheter 2190 1300 Other: Intake Quantity No Sufficient Number of Voids Incontinence 1 Number of Stools Incontinence 0 Post Void Residual Scan Volume (ml) Bedside Commode 500 Vital Signs Temp Pulse Resp BP Pulse Ox 36.5 C 77 17 131/57 H 92 06/26/17 19:22 06/27/17 02:57 06/27/17 02:57 06/27/17 02:57 06/27/17 02:57 Laboratory Results 06/26/17 02:56 06/27/17 06:47 ICD10 Worksheet Patient Problems: Problems Problem Status Onset Lumbago Acute Lumbar stenosis Acute
[2017-06-27] MEDS: ONDANSETRON 4 MG/2 ML VIAL IVP PRN (07:58)
[2017-06-27] MEDS: ENOXAPARIN 40 MG/0.4 ML SYR SC SCH (09:00)
--- NOTE | 2017-06-27 09:38 | SOAPPROG ---
KATHY Progress Note Assessment/Plan: Assessment: 1. 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 Was correcting nicely, and then had marked drop last pm. Solute intake remains marginal. For now, will decrease fluid restriction further. Will ask financial intern to assist with increasing her protein intake with respect to her intolerances. Will continue frequent checks. Will target a level in the upper 120's for this pm. I have call into Dr. Roca to review her meds, which may be associated with SIADH (although she has tolerated these well for a number of years). I believe her surgery and her solute intake are greater contributors. 2. Anemia Pt's Hg yesterday had dropped. I will recheck. Spent greater than 25 minutes with pt and daughter in care and counseling. Plan: 06/27/17 09:34 Subjective: Looks quite good. Objective: Vital Signs Temp Pulse Resp BP Pulse Ox 36.6 C 66 16 141/63 H 93 06/27/17 07:57 06/27/17 07:57 06/27/17 07:57 06/27/17 07:57 06/27/17 07:57 Laboratory Results 06/26/17 02:56 06/27/17 06:47 06/26/17 06/27/17 06/28/17 05:59 05:59 05:59 Intake Total 1164 1000 Output Total 3090 1300 Balance -1926 -300 Physical Exam - Physical Exam General Appearance: no apparent distress Respiratory: lungs clear Cardiac/Chest: regular rate, rhythm Extremities: normal inspection Neuro/Psych: oriented x 3 ICD10 Worksheet Patient Problems: Problems Problem Status Onset Lumbago Acute Lumbar stenosis Acute
[2017-06-27] MEDS: SENNOSIDES/DOCUSATE SODIUM TAB PO SCH ×2 (11:03→20:54)
[2017-06-27] MEDS: POLYETHYLENE GLYCOL 3350 17 GM PKT PO PRN (11:04)
[2017-06-27 11:18] LABS: PLATELET COUNT 216 10^3/uL (150-400)
[2017-06-27] MEDS ORDERED: POTASSIUM CL 20 MEQ TAB PO ONE (12:30)
--- NOTE | 2017-06-27 14:06 | ASMTCMCOM ---
CM Note CM Note Notes: Spoke with patient's daughter Tammy. Family is in agreement with short term SNF upon discharge. She requested referrals to [facility], which I sent. She also explained that family is beginning to discuss a higher level of care for patient (who lives independently). They seem well-resourced and supported by the [facility], where patient lives. Case Management will follow. Date Signed: 06/27/2017 02:06 PM Electronically Signed By:Edna Villasenor RN
--- NOTE | 2017-06-27 15:16 | HOSPPROG ---
Hospitalist Progress Note Assessment/Plan: # Acute hyponatremia - 116 post-op with somnolence - markedly more clear this am work up consistent with SIADH - fluid restricted to 1L overnight - corrected to 124 this am oxygen saturations 93% on RA - continue fluid restriction - cont Q4 hour Na checks - inpatient pharmacy ran med list without concerns for SIADH contributors # Bipolar disorder - continue home meds # lumbar stenosis - s/p decompression - management per NSG - agree with Rehab dispo # proph - Lovenox # diet- regular with 1800ml fluid restriction # dispo - > 2MN as requires close monitoring of sodium correction I have discussed the case with RN - continue bowel regiemn Subjective: felt nauseated this am - working on BM Objective: Vital Signs Temp Pulse Resp BP Pulse Ox 36.6 C 66 16 141/63 H 93 06/27/17 07:57 06/27/17 07:57 06/27/17 07:57 06/27/17 07:57 06/27/17 07:57 Laboratory Results 06/27/17 11:00 06/26/17 06/27/17 06/28/17 05:59 05:59 05:59 Intake Total 1164 1000 Output Total 3090 1300 1540 Balance -7130 -300 -1540 - Physical Exam Constitutional: chronically ill appearing Eyes: anicteric sclera Ears, Nose, Mouth, Throat: moist mucous membranes Cardiovascular: regular rate and rhythym Respiratory: no respiratory distress Gastrointestinal: normoactive bowel sounds Genitourinary: no bladder fullness Skin: warm Musculoskeletal: No asymmetric calves Neurologic: AAOx3 Psychiatric: interacting appropriately Lymph, Heme, Immunologic: no cervical LAD ICD10 Worksheet Patient Problems: Problems Problem Status Onset Lumbago Acute Lumbar stenosis Acute
[2017-06-27] MEDS ORDERED: POTASSIUM CL 20 MEQ TAB ONE (15:43)
[2017-06-27] MEDS ORDERED: DESMOPRESSIN ACETATE 4 MCG/ML INJ IVP STA (20:05)
[2017-06-27] MEDS ORDERED: D5W 1,000 ML IV SCH (20:15)
--- NOTE | 2017-06-27 20:31 | SOAPPROG ---
SOAP Progress Note Assessment/Plan: Assessment: Na came back at 132 this pm, which is above our target. I have requested DDAVP to be given stat. I had originally written for IV D5W, but Cordelia was quite thirsty. I gave her 300ml of water, which she drank readily. I will recheck labs at 2100. Objective: Vital Signs Temp Pulse Resp BP Pulse Ox 36.7 C 67 16 152/75 H 93 06/27/17 16:00 06/27/17 16:00 06/27/17 16:00 06/27/17 16:00 06/27/17 16:00 Laboratory Results 06/27/17 11:00 06/27/17 19:34 06/26/17 06/27/17 06/28/17 05:59 05:59 05:59 Intake Total 1164 1000 500 Output Total 3090 1300 2420 Balance -1926 -300 -2290 ICD10 Worksheet Patient Problems: Problems Problem Status Onset Lumbago Acute Lumbar stenosis Acute
[2017-06-27] MEDS: lamoTRIgine 100 MG TAB PO SCH (20:54)
[2017-06-27] MEDS: traMADol 50 MG TAB PO PRN (21:05)
[2017-06-27] MEDS: ERYTHROMYCIN 0.5% 1 GM OPHT.OINT EACHEYE SCH (21:18)
[2017-06-27] MEDS: QUEtiapine FUMARATE 300 MG TAB PO SCH (21:18)
[2017-06-27] MEDS ORDERED: MELATONIN 3 MG TAB PO PRN (23:34)
[2017-06-28] MEDS: ACETAMINOPHEN 500 MG TAB PO SCH ×4 (00:05→23:18)
[2017-06-28 04:58] LABS: PLATELET COUNT 255 10^3/uL (150-400)
[2017-06-28] MEDS: clonazePAM 0.5 MG TAB PO SCH ×4 (06:20→20:11)
[2017-06-28] MEDS: LEVOTHYROXINE 50 MCG TAB PO SCH (06:20)
--- NOTE | 2017-06-28 07:10 | NEUSURGPN ---
Date of Surgery: 06/23/17 Post Op Day: 5 Assessment/Plan: Assessment: 81 yo female s/p left L1/2 and L4/5 decompression POD #5 Plan: -neuro checks as ordered -AMS this weekend with Na of 116, transferred to ICU. Appreciate NA management with medicine/crit care/renal. Now med surg status. Being treated for SIADH -continue with current pain control plan -pt with need for SNF per PT -continue with PT/OT -TEDs, SCDs, lovenox 40mg day -call with any questions or concerns -Patient was discussed with Dr Minor -Dispo to SNF/rehab once cleared by IM/renal Subjective: Awake and alert. NAD. Pt states that back feels better. Legs feel good. No langston/neck/chest/abd or gu complaints. Objective: AAOx3, NAD AFVSS PERRLA/EOMI no droop CN 2-12 grossly intact MAEx4 Motor 5/5 BLE Incision dressed cdi +LT Neuro Check Frequency: per routine Urinary Catheter in Place: Yes Urinary Catheter Indication: Accurate I & O Required, Other (Use Comment) Catheter Insertion Date: 06/25/17 - Physician Discussed Patient with : Iván Neurosurgery Physical Exam - Vitals, I&O, Labs I and O 06/27/17 06/28/17 06/29/17 05:59 05:59 05:59 Intake Total 1000 1100 Output Total 1300 4140 Balance -300 -3040 Intake: Oral (ml) 1000 1100 Output: Urine (ml) 1300 4140 Catheter 1300 4140 Other: Intake Quantity No Sufficient Number of Voids Catheter 1 Number of Stools Incontinence 0 Vital Signs Temp Pulse Resp BP Pulse Ox 36.9 C 82 16 129/59 H 92 06/27/17 23:37 06/27/17 23:37 06/27/17 23:37 06/27/17 23:37 06/27/17 23:37 Laboratory Results 06/28/17 04:21 06/28/17 04:21 ICD10 Worksheet Patient Problems: Problems Problem Status Onset Lumbago Acute Lumbar stenosis Acute - ICD10 Problem Qualifiers (1) Lumbago (2) Lumbar stenosis
[2017-06-28] MEDS ORDERED: D5W 500 ML IV SCH ×2 (08:15→12:00)
--- NOTE | 2017-06-28 08:19 | SOAPPROG ---
SOAP Progress Note Assessment/Plan: Assessment: #Hyponatremia- suspected post-op SIADH -TSH ok, CXR Neg -acute rise overnight too quick (polyuric) and given DDAVP/water to slow rate of correction. Na this am still a bit too high at 133 and will give some D5W and free water by mouth now and recheck in 2 hours. -goal Na is < 129 today-- aim to keep mid 120s today and then let drift upwards -RN to call me with repeat NA- once back in range, will resume fluid restriction #s/p decompression for Lumbar stenosis- per neurosurgery #bipolar I discussed with RN Bethany Rose MD [facility] pager [phone] 06/28/17 10:52 Subjective: Feels ok. Denies n/v, sob. Eating breakfast when I saw her. Got DDAVP overnight. Objective: Vital Signs Temp Pulse Resp BP Pulse Ox 36.6 C 66 16 150/62 H 97 06/28/17 07:40 06/28/17 07:40 06/28/17 07:40 06/28/17 07:40 06/28/17 07:40 Laboratory Results 06/28/17 04:21 06/28/17 04:21 06/27/17 06/28/17 06/29/17 05:59 05:59 05:59 Intake Total 1000 1100 Output Total 1300 4140 Balance -300 -3040 Physical Exam - Physical Exam General Appearance: alert, no apparent distress EENT: other (mmm) Neck: supple Respiratory: normal breath sounds Cardiac/Chest: regular rate, rhythm Abdomen: non-tender, soft Skin: warm/dry Extremities: other (trace LE edema) Neuro/Psych: alert, oriented x 3 ICD10 Worksheet Patient Problems: Problems Problem Status Onset Lumbago Acute Lumbar stenosis Acute
[2017-06-28] MEDS: POLYETHYLENE GLYCOL 3350 17 GM PKT PO PRN (09:13)
[2017-06-28] MEDS: SENNOSIDES/DOCUSATE SODIUM TAB PO SCH ×2 (09:14→20:11)
[2017-06-28] MEDS: ENOXAPARIN 40 MG/0.4 ML SYR SC SCH (09:15)
[2017-06-28] MEDS: ONDANSETRON DISINTEGRATING 4 MG TAB PO PRN (09:31)
--- NOTE | 2017-06-28 13:08 | HOSPPROG ---
Hospitalist Progress Note Assessment/Plan: Patient is an 81y/o who had a spinal decompression surgery and was noted to have a low sodium of 116. Today is my first encounter w the patient, chart reviewed. # Acute hyponatremia - 116 post-op with somnolence (resolved) work up consistent with SIADH - fluid restricted -corrected a bit quickly today appreciate nephrology seeing her - continue fluid restriction # Bipolar disorder - continue home meds # lumbar stenosis - s/p decompression - management per NSG - agree with Rehab dispo - s/p left L1/2 and L4/5 decompression POD #5 # proph - Lovenox # diet- regular with 1800ml fluid restriction # dispo - > 2MN as requires close monitoring of sodium correction #plan: leave bob in to monitor strict I & O, cont monitoring Subjective: Cordelia is feeling overall well, has some ongoing back pain. Objective: Vital Signs Temp Pulse Resp BP Pulse Ox 36.6 C 66 16 150/62 H 97 06/28/17 07:40 06/28/17 07:40 06/28/17 07:40 06/28/17 07:40 06/28/17 07:40 Laboratory Results 06/28/17 04:21 06/28/17 08:20 06/27/17 06/28/17 06/29/17 05:59 05:59 05:59 Intake Total 1000 1100 Output Total 1300 4140 Balance -300 -3040 - Physical Exam Constitutional: no apparent distress, appears nourished, uncomfortable Eyes: other (wears glasses) Ears, Nose, Mouth, Throat: hearing normal Cardiovascular: regular rate and rhythym Respiratory: no respiratory distress Skin: warm Musculoskeletal: generalized weakness Neurologic: AAOx3 Psychiatric: interacting appropriately ICD10 Worksheet Patient Problems: Problems Problem Status Onset Lumbago Acute Lumbar stenosis Acute
--- NOTE | 2017-06-28 16:19 | ASMTCMCOM ---
CM Note CM Note Notes: Met with pt, son Estrada and daughter Tammy, informed parties [facility] no bed availability and [facility] can accept. Pt and family agreeable to [facility] at d/c, updated Rose with [facility]. Pt sodium still requiring monitoring and d/c date TBD. CM to follow. Date Signed: 06/28/2017 04:18 PM Electronically Signed By:GARCIA Juárez
[2017-06-28] MEDS: IPRATROPIUM/ALBUTEROL 3 ML DEYVIAL IH SCH ×3 (16:51→21:32)
[2017-06-28] MEDS: lamoTRIgine 100 MG TAB PO SCH (20:11)
[2017-06-28] MEDS: ERYTHROMYCIN 0.5% 1 GM OPHT.OINT EACHEYE SCH (20:11)
[2017-06-28] MEDS: QUEtiapine FUMARATE 300 MG TAB PO SCH (20:11)
[2017-06-29] MEDS: traMADol 50 MG TAB PO PRN ×2 (03:30→17:31)
[2017-06-29] MEDS: ACETAMINOPHEN 500 MG TAB PO SCH ×2 (06:44→14:51)
[2017-06-29] MEDS: clonazePAM 0.5 MG TAB PO SCH ×4 (06:44→20:19)
[2017-06-29] MEDS: LEVOTHYROXINE 50 MCG TAB PO SCH (06:44)
[2017-06-29] MEDS: ONDANSETRON DISINTEGRATING 4 MG TAB PO PRN (06:46)
--- NOTE | 2017-06-29 07:23 | NEUSURGPN ---
Date of Surgery: 06/23/17 Post Op Day: 6 Assessment/Plan: Assessment: 81 yo female s/p left L1/2 and L4/5 decompression POD #6 Plan: -neuro checks as ordered -AMS this past weekend with Na of 116, transferred to ICU. Appreciate NA management with medicine/renal. Now med surg status. Being treated for SIADH. Continue to closely monitor Na levels -continue with current pain control plan -pt with need for SNF per PT/family -continue with PT/OT -TEDs, SCDs, lovenox 40mg day -call with any questions or concerns -Patient was discussed with Dr Minor -Dispo to SNF/rehab once cleared by IM/renal -appreciate Renal and IM care Subjective: Awake and alert. NAD. No new complaints or concerns. No f/c/n/v/d. Objective: AAOx3, NAD AFVSS PERRLA/EOMI no droop CN 2-12 grossly intact MAEx4 Motor 5/5 BLE Incision dressed cdi +LT Neuro Check Frequency: per routine Urinary Catheter in Place: Yes Urinary Catheter Indication: Accurate I & O Required Catheter Insertion Date: 06/25/17 - Physician Discussed Patient with : Iván Neurosurgery Physical Exam - Vitals, I&O, Labs I and O 06/28/17 06/29/17 06/30/17 05:59 05:59 05:59 Intake Total 1100 Output Total 4140 425 Balance -3040 -425 Intake: Oral (ml) 1100 Output: Urine (ml) 4140 425 Catheter 4140 425 Other: Number of Voids Catheter 1 Toilet 1 Number of Stools Toilet 1 Vital Signs Temp Pulse Resp BP Pulse Ox 36.6 C 73 18 159/80 H 94 06/29/17 00:00 06/29/17 00:00 06/29/17 00:00 06/29/17 00:00 06/29/17 00:00 Laboratory Results 06/28/17 04:21 06/29/17 04:34 ICD10 Worksheet Patient Problems: Problems Problem Status Onset Lumbago Acute Lumbar stenosis Acute - ICD10 Problem Qualifiers (1) Lumbago (2) Lumbar stenosis
[2017-06-29] MEDS: SENNOSIDES/DOCUSATE SODIUM TAB PO SCH ×2 (08:07→22:07)
[2017-06-29] MEDS: ENOXAPARIN 40 MG/0.4 ML SYR SC SCH (08:27)
--- NOTE | 2017-06-29 10:38 | SOAPPROG ---
SOAP Progress Note Assessment/Plan: Assessment: 1. 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 She has been difficult to correct in a linear fashion. She had significant drop yesterday. Will try to control correction to around 130 or so today. Would like to do this with oral fluid intake, as DDAVP he tended to result in overcompensation. I've discussed approach with daughter, patient, and hospitalist. She otherwise looks very good. Subjective: In good spirits Objective: Vital Signs Temp Pulse Resp BP Pulse Ox 36.4 C 76 17 110/52 L 96 06/29/17 07:19 06/29/17 07:19 06/29/17 07:19 06/29/17 07:19 06/29/17 07:19 Laboratory Results 06/28/17 04:21 06/29/17 08:30 06/28/17 06/29/17 06/30/17 05:59 05:59 05:59 Intake Total 1100 Output Total 4140 425 Balance -3040 -425 Physical Exam - Physical Exam General Appearance: no apparent distress Respiratory: lungs clear Cardiac/Chest: regular rate, rhythm Extremities: normal inspection Neuro/Psych: oriented x 3 ICD10 Worksheet Patient Problems: Problems Problem Status Onset Lumbago Acute Lumbar stenosis Acute
[2017-06-29] MEDS: IPRATROPIUM/ALBUTEROL 3 ML DEYVIAL IH SCH (12:14)
[2017-06-29] MEDS ORDERED: IPRATROPIUM/ALBUTEROL 3 ML DEYVIAL IH PRN (14:41)
--- NOTE | 2017-06-29 16:14 | HOSPPROG ---
Hospitalist Progress Note Assessment/Plan: Patient is an 81y/o who had a spinal decompression surgery and was noted to have a low sodium of 116. Today is my first encounter w the patient, chart reviewed. Reviewed her care with Dr Kruger # Acute hyponatremia - 116 post-op with somnolence (resolved) work up consistent with SIADH - fluid restricted - continue fluid restriction -overall stable, bit low this morning # Bipolar disorder - continue home meds # lumbar stenosis - s/p decompression - management per NSG - agree with Rehab dispo - s/p left L1/2 and L4/5 decompression POD #6 # proph - Lovenox # diet- regular with 1800ml fluid restriction # dispo - > 2MN as requires close monitoring of sodium correction #plan: dc bob today, when sodium stabilizes; she will be dc to [facility]. Patient is requesting a PCP for f/u care. I gave her names of two physicians. Subjective: Anny is concerned about being discharged and wants close monitoring when dc. Objective: Vital Signs Temp Pulse Resp BP Pulse Ox 36.8 C 70 16 100/85 H 95 06/29/17 15:29 06/29/17 15:29 06/29/17 15:29 06/29/17 15:29 06/29/17 15:29 Laboratory Results 06/28/17 04:21 06/29/17 12:40 06/28/17 06/29/17 06/30/17 05:59 05:59 05:59 Intake Total 1100 340 Output Total 4140 425 4536 [facility] -3040 -425 -1186 - Physical Exam Constitutional: no apparent distress, appears nourished, not in pain Ears, Nose, Mouth, Throat: hearing normal Cardiovascular: regular rate and rhythym Respiratory: no respiratory distress Gastrointestinal: normoactive bowel sounds Skin: warm Neurologic: AAOx3 Psychiatric: interacting appropriately ICD10 Worksheet Patient Problems: Problems Problem Status Onset Lumbago Acute Lumbar stenosis Acute
[2017-06-29] MEDS ORDERED: DESMOPRESSIN ACETATE 2 MCG in NS 50 ML IV ONE (18:49)
[2017-06-29] MEDS ORDERED: DESMOPRESSIN ACETATE 4 MCG/ML INJ IVP ONE (19:00)
[2017-06-29] MEDS: QUEtiapine FUMARATE 300 MG TAB PO SCH (20:19)
[2017-06-29] MEDS: lamoTRIgine 100 MG TAB PO SCH (20:20)
[2017-06-29] MEDS: ERYTHROMYCIN 0.5% 1 GM OPHT.OINT EACHEYE SCH (20:20)
[2017-06-30] MEDS ORDERED: D5W 1/2 NS 1,000 ML IV ONE (00:30)
[2017-06-30] MEDS: ACETAMINOPHEN 500 MG TAB PO SCH ×4 (02:47→22:55)
[2017-06-30] MEDS: clonazePAM 0.5 MG TAB PO SCH ×4 (06:31→20:10)
[2017-06-30] MEDS: LEVOTHYROXINE 50 MCG TAB PO SCH (06:31)
--- NOTE | 2017-06-30 07:16 | NEUSURGPN ---
Date of Surgery: 06/23/17 Post Op Day: 7 Assessment/Plan: Assessment: 81 yo female s/p left L1/2 and L4/5 decompression POD #7 Plan: - neuro stable - AMS following surgery with Na of 116. Appreciate NA management with medicine/ renal. Being treated for SIADH. Continue to closely monitor Na levels - pain controlled with current oral regimen - continue with PT/OT - TEDs, SCDs, lovenox 40mg day - call with any questions or concerns - Patient was discussed with Dr Minor - Dispo to SNF/rehab once cleared by IM/renal Subjective: Doing well this morning. No lower extremity pain, numbness, tingling. Back pain controlled. Objective: Awake. Alert. PERRL. EOMI Facial expression symmetrical Muscle strength full at 5/5 Sensation intact Catheter Insertion Date: 06/25/17 - Physician Discussed Patient with : Iván Neurosurgery Physical Exam - Vitals, I&O, Labs I and O 06/29/17 06/30/17 07/01/17 05:59 05:59 05:59 Intake Total 960 Output Total 425 2826 Balance -425 -1866 Intake: Oral (ml) 960 Output: Urine (ml) 425 2826 Bedside Commode 1775 Catheter 425 1050 Incontinence 1 Other: Intake Quantity Yes Sufficient Number of Voids Bedside Commode 1 Incontinence 4 Toilet 1 Number of Stools Toilet 1 Vital Signs Temp Pulse Resp BP Pulse Ox 36.7 C 71 18 102/50 L 96 06/30/17 04:39 06/30/17 04:39 06/30/17 04:39 06/30/17 04:39 06/30/17 04:39 Laboratory Results 06/28/17 04:21 06/30/17 04:35 ICD10 Worksheet Patient Problems: Problems Problem Status Onset Lumbago Acute Lumbar stenosis Acute
[2017-06-30] MEDS: SENNOSIDES/DOCUSATE SODIUM TAB PO SCH ×2 (11:08→20:09)
[2017-06-30] MEDS: ENOXAPARIN 40 MG/0.4 ML SYR SC SCH (11:33)
--- NOTE | 2017-06-30 12:52 | HOSPPROG ---
Hospitalist Progress Note Assessment/Plan: Patient is an 81y/o who had a spinal decompression surgery and was noted to have a low sodium of 116. Today is my first encounter w the patient, chart reviewed. Reviewed her care with Dr Kruger # Acute hyponatremia - 116 post-op with somnolence (resolved) work up consistent with SIADH - fluid restricted - continue fluid restriction, 1000 ml -overall stable, bit low this morning # Bipolar disorder - continue home meds -stable # lumbar stenosis - s/p decompression - management per NSG - agree with Rehab dispo - s/p left L1/2 and L4/5 decompression POD #6 # proph - Lovenox # diet- regular with fluid restriction # dispo - > 2MN as requires close monitoring of sodium correction #plan: when ok w Renal would dc soon for rehab at [facility] Subjective: Anny feels great today. Objective: Vital Signs Temp Pulse Resp BP Pulse Ox 36.9 C 82 18 126/74 H 91 L 06/30/17 12:12 06/30/17 12:12 06/30/17 12:12 06/30/17 12:12 06/30/17 12:12 Laboratory Results 06/28/17 04:21 06/30/17 08:57 06/29/17 06/30/17 07/01/17 05:59 05:59 05:59 Intake Total 960 Output Total 425 7000 200 Balance -425 -1866 -200 - Physical Exam Constitutional: no apparent distress, appears nourished, not in pain Ears, Nose, Mouth, Throat: hearing normal Cardiovascular: regular rate and rhythym Respiratory: no respiratory distress Skin: warm Musculoskeletal: generalized weakness Neurologic: AAOx3 Psychiatric: interacting appropriately ICD10 Worksheet Patient Problems: Problems Problem Status Onset Lumbago Acute Lumbar stenosis Acute
--- NOTE | 2017-06-30 13:27 | SOAPPROG ---
SOAP Progress Note Assessment/Plan: Assessment/Plan: 81 y/o F with h/o dementia who is s/p laminectomy with sodium to 116 consistent and data with SIADH on 06/25 however appeared it may have been also due to low solute given sodium <20 and osm <100mg/dL yesterday. Overnight, the patient sodium cammy to 135 and was given ddAVP, then unfortunately still cammy to 137 and was started on d5. UO has dropped and sodium is now going down. -current sodium 133mg/dL -d5 held around 12 -continue fluid restriction of 1.0L -monitor UO closely -BMP or sodiums q4-6h, will get repeat urine studies now -encourage protein intake, will check albumin -may allow to normalize, >24h period -will hold lasix and salt tabs for now -will continue to follow, please contact if ?'s 06/30/17 14:27 Subjective: Patient is awake and alert. She denies N/V. Trying to eat, has some protein powder her son brought in today. Objective: Vital Signs Temp Pulse Resp BP Pulse Ox 36.9 C 82 18 126/74 H 91 L 06/30/17 12:12 06/30/17 12:12 06/30/17 12:12 06/30/17 12:12 06/30/17 12:12 Laboratory Results 06/28/17 04:21 06/30/17 12:35 06/29/17 06/30/17 07/01/17 05:59 05:59 05:59 Intake Total 960 Output Total 425 3796 200 Balance -425 -3659 -200 Physical Exam - Physical Exam General Appearance: WD/WN, alert, no apparent distress EENT: PERRL/EOMI, normal ENT inspection, TMs normal Neck: non-tender, full range of motion, supple Respiratory: chest non-tender, lungs clear, normal breath sounds Cardiac/Chest: normal peripheral pulses, regular rate, rhythm Abdomen: normal bowel sounds, non-tender, soft Back: Other (post-laminectomy) Extremities: normal range of motion, non-tender Neuro/Psych: no motor/sensory deficits, alert, oriented x 3 ICD10 Worksheet Patient Problems: Problems Problem Status Onset Lumbago Acute Lumbar stenosis Acute
--- NOTE | 2017-06-30 14:22 | ASMTCMCOM ---
CM Note CM Note Notes: Pt sodium levels still being monitored, hospitalist and nephrology consulting. Plan remains d/c to [facility] when medically stable. CM to follow. Date Signed: 06/30/2017 02:22 PM Electronically Signed By:GARCIA Juárez
[2017-06-30] MEDS: QUEtiapine FUMARATE 300 MG TAB PO SCH (20:10)
[2017-06-30] MEDS: lamoTRIgine 100 MG TAB PO SCH (20:11)
[2017-06-30] MEDS: ERYTHROMYCIN 0.5% 1 GM OPHT.OINT EACHEYE SCH (20:19)
[2017-07-01] MEDS: clonazePAM 0.5 MG TAB PO SCH ×4 (06:10→20:28)
[2017-07-01] MEDS: LEVOTHYROXINE 50 MCG TAB PO SCH (06:15)
[2017-07-01] MEDS: ONDANSETRON DISINTEGRATING 4 MG TAB PO PRN (06:21)
[2017-07-01] MEDS: ACETAMINOPHEN 500 MG TAB PO SCH ×2 (06:26→12:49)
--- NOTE | 2017-07-01 07:36 | SOAPPROG ---
SOAP Progress Note Assessment/Plan: Assessment: #Hyponatremia- suspected post-op SIADH -TSH ok, CXR Neg -has required DDAVP and free water back to slow rate of correction- last given evening -Na this am 130-- stable -urine studies consistent with SIADH--- her labs 2 days ago suggested poor solute intake and repeat yesterday now looks SIADH. This may be more than just post op pain and will need further eval for cause (We can do as outpt--?med, pain, occult malignancy-- CXR neg here). For now continue fluid restriction, encourage her to eat (will hold NaCL tabs for now). Check Na today q6 hours to ensure stable and can likely d/c tomorrow if stable. Will liberalize fluid restriction a bit more. -I tried to call daughter but left VM-- I gave pt my contact info to call me #s/p decompression for Lumbar stenosis- per neurosurgery. pain controlled #bipolar I discussed with RN I am director of flight operations for weekend Bethany Rose MD [facility] pager [phone] 07/01/17 10:40 Subjective: Feeling well, eating breakfast. Note no back pain at all. No sob, le edema. Na stable overnight. Objective: Vital Signs Temp Pulse Resp BP Pulse Ox 36.9 C 70 16 127/84 H 94 07/01/17 00:00 07/01/17 00:00 07/01/17 00:00 07/01/17 00:00 07/01/17 00:00 Laboratory Results 06/28/17 04:21 07/01/17 05:16 06/30/17 07/01/17 07/02/17 05:59 05:59 05:59 Intake Total 960 1250 Output Total 2826 600 150 Balance -1866 650 -150 Physical Exam - Physical Exam General Appearance: alert, no apparent distress, other (stting in chair, eating breakfast) EENT: other (mmm) Neck: supple Respiratory: lungs clear Cardiac/Chest: regular rate, rhythm Abdomen: normal bowel sounds, non-tender, soft Skin: warm/dry Extremities: other (no edema) Neuro/Psych: alert, oriented x 3 ICD10 Worksheet Patient Problems: Problems Problem Status Onset Lumbago Acute Lumbar stenosis Acute
[2017-07-01] MEDS: ENOXAPARIN 40 MG/0.4 ML SYR SC SCH (08:08)
[2017-07-01] MEDS: SENNOSIDES/DOCUSATE SODIUM TAB PO SCH ×2 (08:09→20:28)
--- NOTE | 2017-07-01 09:28 | SOAPPROG ---
SOAP Progress Note Assessment/Plan: Assessment: 81 yo F POD #8 L1/2, L4/5 decompression with post op hyponatremia Plan: stable and doing well overall :) NA 130 this am per IM PT/OT scd/juana/lovenox for dvt prophylaxis dispo: to rehab when cleared by Hospitalists please call with neuro changes discussed with Dr Minor 07/01/17 09:26 Subjective: back pain improving, no leg pain, no weakness. Objective: Vital Signs Temp Pulse Resp BP Pulse Ox 37.3 C 71 20 155/76 H 92 07/01/17 08:09 07/01/17 08:09 07/01/17 08:09 07/01/17 08:09 07/01/17 08:09 Laboratory Results 06/28/17 04:21 07/01/17 05:16 06/30/17 07/01/17 07/02/17 05:59 05:59 05:59 Intake Total 960 1250 Output Total 2826 600 450 Balance -1866 650 -450 AAOx4, +FC PERRL, EOMI, no facial droop 5/5 + light touch C/D/I ICD10 Worksheet Patient Problems: Problems Problem Status Onset Lumbago Acute Lumbar stenosis Acute
--- NOTE | 2017-07-01 14:23 | HOSPPROG ---
Hospitalist Progress Note Assessment/Plan: Patient is an 81y/o who had a spinal decompression surgery and was noted to have a low sodium of 116. Today is my first encounter w the patient, chart reviewed. # Acute hyponatremia - 116 post-op with somnolence (resolved) work up per nephrology suggestive of SIADH - fluid restricted - continue fluid restriction -stabilizing # Bipolar disorder - continue home meds -stable # lumbar stenosis - s/p decompression - management per NSG - agree with Rehab dispo - s/p left L1/2 and L4/5 decompression POD #6 # proph - Lovenox # diet- regular with fluid restriction # dispo - > 2MN as requires close monitoring of sodium correction #plan: when ok w Renal would dc soon for rehab at [facility] Subjective: Pt reports she is "mad and sad" regarding her urinary incontinence. She has been given DDAVP which has caused her to retain and then dump urine. Objective: Vital Signs Temp Pulse Resp BP Pulse Ox 99.1 F 71 20 155/76 H 92 07/01/17 08:09 07/01/17 08:09 07/01/17 08:09 07/01/17 08:09 07/01/17 08:09 Laboratory Results 06/28/17 04:21 07/01/17 09:39 06/30/17 07/01/17 07/02/17 05:59 05:59 05:59 Intake Total 960 1250 980 Output Total 2826 600 1250 Balance -1866 650 -270 - Physical Exam Constitutional: no apparent distress Eyes: anicteric sclera Ears, Nose, Mouth, Throat: moist mucous membranes Cardiovascular: regular rate and rhythym, no murmur, rub, or gallop Respiratory: no respiratory distress, no rales or rhonchi Genitourinary: no bladder fullness, No bob in urethra Skin: warm, normal color Psychiatric: interacting appropriately, anxious ICD10 Worksheet Patient Problems: Problems Problem Status Onset Lumbago Acute Lumbar stenosis Acute
[2017-07-01] MEDS: POLYETHYLENE GLYCOL 3350 17 GM PKT PO PRN (20:28)
[2017-07-01] MEDS: QUEtiapine FUMARATE 300 MG TAB PO SCH (20:28)
[2017-07-01] MEDS: lamoTRIgine 100 MG TAB PO SCH (20:29)
[2017-07-01] MEDS: ERYTHROMYCIN 0.5% 1 GM OPHT.OINT EACHEYE SCH (20:31)
[2017-07-02] MEDS: ACETAMINOPHEN 500 MG TAB PO SCH ×3 (00:07→16:23)
[2017-07-02] MEDS: LEVOTHYROXINE 50 MCG TAB PO SCH (06:30)
[2017-07-02] MEDS: clonazePAM 0.5 MG TAB PO SCH ×3 (06:30→16:23)
--- NOTE | 2017-07-02 06:58 | SOAPPROG ---
SOAP Progress Note Assessment/Plan: Assessment: 81 yo F POD #8 L1/2, L4/5 decompression with post op hyponatremia Plan: stable and doing well overal NA 140 this am per IM PT/OT scd/juana/lovenox for dvt prophylaxis dispo: to rehab when cleared by Hospitalists/[place] hopefully today please call with neuro changes discussed with Dr Minor 07/01/17 09:26 07/02/17 06:57 Subjective: back pain improving, no leg pain, no weakness. Objective: Vital Signs Temp Pulse Resp BP Pulse Ox 36.3 C 79 16 145/56 H 94 07/01/17 23:43 07/01/17 23:43 07/01/17 23:43 07/01/17 23:43 07/01/17 23:43 Laboratory Results 06/28/17 04:21 07/02/17 04:20 07/01/17 07/02/17 07/03/17 05:59 05:59 05:59 Intake Total 1250 1430 Output Total 600 2875 Balance 650 -1445 AAOx4, +FC PERRL, EOMI, no facial droop DAVY x 4 + light touch C/D/I ICD10 Worksheet Patient Problems: Problems Problem Status Onset Lumbago Acute Lumbar stenosis Acute
[2017-07-02 08:19] VITALS: BP 138/76
--- NOTE | 2017-07-02 09:05 | SOAPPROG ---
SOAP Progress Note Assessment/Plan: Assessment: #Hyponatremia- suspected SIADH -TSH ok, CXR Neg -has required DDAVP and free water back to slow rate of correction- last given evening -Na correcting ok- up to 140 today and will give back some water now and recheck labs in 2 hours. I think we can liberalize her water intake to 2L daily but checking urine studies now to help guide this. -urine studies consistent with SIADH--- her labs 3 days ago suggested poor solute intake but repeat SIADH consistent This may be more than just post op pain and will need further eval for cause (We can do as outpt--?med, pain, occult malignancy-- CXR neg here). For now, ok to d/c to SNF later today and have labs there checked Monday and Monday--- please fax to our office and call if Na < 130. Should go out on 2L fluid restriction/day-- we may need to adjust further. We will arrange f/u (wants to see Dr. Kruger in [place] office). Also, needs stat labs if confusion, more weak/balance issues worse. I called daughter who is internet sourcer and reviewed this with her in detail. #s/p decompression for Lumbar stenosis- per neurosurgery. pain controlled, doing well. to go to [facility] #bipolar- on lamictal, seroquel #chronic urine incontinence-- she does not some mild dysuria this am and will check UA to exclude infection. I discussed with RN I am content production specialist for weekend Bethany Rose MD [facility] pager [phone] 07/02/17 09:08 Subjective: Feels well, wants to go home today. Notes chronic urine incontinence but some mild dysuria this am. No fevers/leukocytosis. Na 140 this am. Eating well. I spoke to daughter by phone last evening. Objective: Vital Signs Temp Pulse Resp BP Pulse Ox 36.8 C 76 16 138/76 H 93 07/02/17 08:00 07/02/17 08:00 07/02/17 08:00 07/02/17 08:00 07/02/17 08:00 Laboratory Results 06/28/17 04:21 07/02/17 04:20 07/01/17 07/02/17 07/03/17 05:59 05:59 05:59 Intake Total 1250 1430 240 Output Total 600 2875 Balance 650 -1446 240 Physical Exam - Physical Exam General Appearance: alert, no apparent distress, other (pleasant) EENT: other (mmm) Neck: supple Respiratory: lungs clear Cardiac/Chest: regular rate, rhythm Abdomen: non-tender, soft Skin: warm/dry Extremities: other (no edema) Neuro/Psych: alert, oriented x 3 ICD10 Worksheet Patient Problems: Problems Problem Status Onset Lumbago Acute Lumbar stenosis Acute
[2017-07-02] MEDS ORDERED: NITROFURANTOIN MACROBID 100 MG CAP PO SCH (11:00)
[2017-07-02] MEDS: SENNOSIDES/DOCUSATE SODIUM TAB PO SCH (11:19)
--- NOTE | 2017-07-02 11:42 | PDIAF ---
- Diagnosis Diagnosis: L1/2, L4/5 lumbar decompression, post op SIADH, post op UTI Code Status: Full Code - Medication Management Discharge Medications: Medications to Continue on Transfer Carboxymethylcellulose 0.5% [Refresh Plus Drops 0.5%] 1 drops EACHEYE DAILY PRN 06/22/17 [Last Taken 06/22/17] Erythromycin 0.5% 1 ping EACHEYE HS 06/22/17 [Last Taken 06/22/17] Herbals/Supplements -Info Only 1 ea PO DAILY 06/22/17 [Last Taken 06/22/17] Levothyroxine [Synthroid 50 mcg (*)] 50 mcg PO DAILY06 06/22/17 [Last Taken 06:30] QUEtiapine FUMARATE [Seroquel 300mg (*)] 300 mg PO HS 06/22/17 [Last Taken 06/22] celeCOXIB [Celebrex (*)] 200 mg PO BID 06/22/17 [Last Taken 06/21/17] clonazePAM [Klonopin (*)] 0.5 mg PO Q12H PRN 06/22/17 [Last Taken 06/22/17] clonazePAM [Klonopin (*)] 0.5 mg PO QID 06/22/17 [Last Taken 06/23/17 06:30] lamoTRIgine [LamICTAL 100 MG (*)] 400 mg PO HS 06/22/17 [Last Taken 06/22/17] Enoxaparin [Lovenox 40 MG (*)] 40 mg SC DAILY syr 07/02/17 [Last Taken Unknown] Nitrofurantoin Macrobid [Macrobid] 100 mg PO BID cap 07/02/17 [Last Taken Unknown] traMADol [Ultram 50 mg (*)] 50 mg PO Q6HRS PRN tab 07/02/17 [Last Taken Unknown ] Discharge Medications: Refer to the Discharge Home Medication list for PRN reason. PICC Care - Routine: N/A - Orders Services needed: Physical Therapy, Occupational Therapy Diet Recommendation: no restrictions on diet Diet Texture: Regular Texture Diet Tube feedin liter free water restriction per day Landa: No Wound Care Instructions: remove steri strips 07/07/17 Additional Instructions: 1. Follow up with Dr. Minor in 2 weeks. [phone] 2. Refrain from lifting more than 10 pounds and bending/twisting. 3. Ok to remove dressing on Monday06/25/17 and leave incisions open to the air. 4. Ok to shower and get incisions wet on Monday06/26/17. Be gentle, no scrubbing. 5. Call Dr. Minor's office with any questions/concerns. 6. 2 liter fluid restriction per day 7. Repeat NA level on Monday (07/03) and Monday (07/05) no NSAID's for 6 months - Labs/Radiology BMP Date: 07/03/17 (please check NA 07/03/17 and 07/05/17, please fax results to [facility]) Call or Fax Lab and Imaging Results to: Fax NA levels to [facility] - Follow Up Care Current Providers and Referrals: Angy Minor DO [Doctor of Osteopathy] - follow up in 2 weeks Fabien WILLIS [Primary Care Provider] -
[2017-07-02] MEDS ORDERED: DILTIAZEM 30 MG TAB PO SCH (12:00)
[2017-07-02] MEDS: ENOXAPARIN 40 MG/0.4 ML SYR SC SCH (12:25)
--- NOTE | 2017-07-02 17:00 | ASDISCHSUM ---
Discharge Information Plan Status:SNF Medically Cleared to Leave:07/02/2017 Discharge Date:07/02/2017 04:58 PM D/C Disposition:[facility] ADT D/C Disposition:Other Rehab, Not [facility] Projected Discharge Date:06/29/2017 11:00 AM Transportation at D/C:Wheelchair Van Discharge Delay Reason: Follow-Up Date:06/29/2017 11:00 AM Discharge Slot:2 - 12:01 pm - 18:00 pm Final Diagnosis:L1/2, L4/5 lumbar decompression, post op SIADH, post op UTI Placement Information Referral Type:*Senior Care/SNF Referral ID:[id number] Provider Name:Delfina [facility] Elle Address 1[address] Phone Number: Address 2: Fax Number: City:[place] Selection Factors:Patient/Family Choice State:[place] Patient Contact Information Contact Name:JACKSON Relationship:Daughter Address: Work Phone: City: [facility] Phone: [facility]/Zip Code: Email: Financial Information Financial Class:Medicare Primary Plan Desc:MEDICARE INPATIENT Primary Plan Number:[id number] Secondary Plan Desc:[employer]ARP/MDR SUPPLEMENT Secondary Plan Number:[id number] Assessment Information [facility] CM Progress Note CM Note CM Note Notes: CM chart review. Patient is a 81 y/o female s/p left L1/2 and L4/5 decompression POD #1. PT and OT recommending SNF. CM to follow. Date Signed: 06/24/2017 01:47 PM Electronically Signed By:Esperanza Britton BC CM Progress Note CM Note CM Note Notes: Met with patient to ask some questions about her PLOF. She lives independently at the [facility]. She has home PT services through [facility]. Her PCP is Cordelia Hernandez with [facility] (home visits once a week) and her psychiatrist is Dr Reza Roca. She realizes that she might need an increased level of care, and she defers to her daughter Tammy on these matters. We'll have a family meeting with patient and some of her adult children tomorrow; discharge planning will certainly be a topic of discussion. Date Signed: 06/26/2017 03:06 PM Electronically Signed By:Edna Villasenor RN [facility] CM Progress Note CM Note CM Note Notes: Spoke with patient's daughter Tammy. Family is in agreement with short term SNF upon discharge. She requested referrals to [facility], which I sent. She also explained that family is beginning to discuss a higher level of care for patient (who lives independently). They seem well-resourced and supported by the [facility], where patient lives. Case Management will follow. Date Signed: 06/27/2017 02:06 PM Electronically Signed By:Edna Villasenor RN [facility] CM Progress Note CM Note CM Note Notes: Met with pt, son Estrada and daughter Tammy, informed parties [facility] no bed availability and [facility] can accept. Pt and family agreeable to [facility] at d/c, updated Rose with [facility]. Pt sodium still requiring monitoring and d/c date TBD. CM to follow. Date Signed: 06/28/2017 04:18 PM Electronically Signed By:GARCIA Juárez [facility] CM Progress Note CM Note CM Note Notes: Pt sodium levels still being monitored, hospitalist and nephrology consulting. Plan remains d/c to [facility] when medically stable. CM to follow. Date Signed: 06/30/2017 02:22 PM Electronically Signed By:GARCIA Juárez Case Management Discharge Plan Note Case Management Discharge Discharge Order Complete? Answers: Yes Patient to Obtain Answers: Other Notes: via [facility] Medications Transportation Arranged Answers: Other Notes: Wheelchair van, arrange d and to be paid for by [facility] Transport will Pick (Date 07/02/2017 04:30 PM & Time) ROSENDO Complete Answers: No Notes: N/A Case Management Transport Answers: Yes Form Complete Faxed Final Orders Answers: Yes Notes: Sent via [facility], confirmed receipt with Viky at [facility] Agency/Facility Transfer Answers: Yes Notes: Sent via Report Printed & Faxed to [facility], confirmed Receiving Agency receipt with Viky at [facility] Family Notified Answers: Yes Notes: Tammy Ovalle at bedsid e Discharge Comments Notes: Reviewed chart, spoke with Emily RN regarding discharge plan of care, pt's progress. Per Emily, pt to discharge to SNF today. Call placed to Andreina at [facility], per [facility] bed available, able to accept. [facility] to arrange and pay for wheelchair transport. Transport to arrive at 16:30; facesheet printed for motorcoach driver. Update provided to pt and pt's dghtr Tammy. Pt and dghtr with several questions regarding transfer - pt very concerned about evening medications. Dghtr wanting to know if facility has depends. Call placed to Viky in admissions. Confirmed medications will be available this evening. Per Viky, meds are ordered once the pt arrives at the facility; the medications will then be available four hrs later. Questions answered; update provided to pt and family. IM signed, placed in chart; copy provided to pt. Pt to follow up as directed. CM available for any further issues or concerns. Discharge Plan: [facility] Date Signed: 07/02/2017 04:59 PM Electronically Signed By:Lucila Carl RN Intervention Information Intervention Type:*IM-Signed Date of Service:06/30/2017 01:56 PM Patient Type:Inpatient Staff Member:Blanche Herrmann Hours: Discipline: Severity: Comment: Intervention Type:*IM-Signed Date of Service:07/02/2017 04:59 PM Patient Type:Inpatient Staff Member:SHAHNAZ Carl Taylor Hours: Discipline: Severity: Comment:
--- NOTE | 2017-07-07 10:06 | GDS ---
[f rep st] DISCHARGE SUMMARY ADMITTING DIAGNOSES: Lumbar stenosis, lumbar spondylosis, urinary incontinence. DISCHARGE DIAGNOSES: Hyponatremia, lumbar stenosis, and spondylosis. PROCEDURES: Left L4-5 microdecompression hemilaminectomy, foraminotomy and microdecompression. CONSULTATIONS: Hospitalist, Nephrology, Physical and Occupational Therapy. HOSPITAL COURSE: The patient is an 81-year-old female who presented to the hospital to undergo surgi sedrick intervention due to 3 months of urinary incontinence and her leg buckling when ambulating. She u nderwent surgery by Dr. Angy Minor on June 23 with a microdecompression at L1-2 and at L4-5. Margy prince tolerated the surgery well without complications and was transferred to the floor for further neuro logical checks and pain control. She was seen by Physical and Occupational Therapy. Following surge ry, she was found to have hyponatremia with a sodium of 116. She was diagnosed with SIADH. Internal Medicine and Nephrology were both consulted. She was transferred to the ICU until sodium was stabil ized and then transferred back to the floor. Once she was medically stable, sodium was stabilized, a nd she was tolerating a diet. She was deemed suitable for discharge. She was discharged to [facility]. DISCHARGE MEDICATIONS: Please refer to the MAR. DISCHARGE INSTRUCTIONS: Patient was asked to refrain from lifting more than 10 pounds and bending an d twisting. She is to follow up with Dr. Angy Minor in 2 weeks. /[id number]/MODL
== END 2017-07-02 16:58 | DRG 983 ==
LOC: INTOOBSV 06:55 → OBSVTOIN 06:55 → F3N 06:55 → UNDOADMOB 06:55 → F3N 12:32 → OBSVTOIN 06-24 09:36 → F3N 06-24 09:36 → F2N 06-25 09:24 → F3N 06-27 16:23 → UNDODISIN 07-02 16:58
PROVIDERS: ADMIT Neurological Surgery; ATTEND Neurological Surgery
PROC: 00NY0ZZ Release Lumbar Spinal Cord, Open Approach (ICD-10-PCS; principal; 2017-06-23 08:30)
PROC: 4A1004G Monitoring of Central Nervous Electrical Activity, Intraoperative, Open Approach (ICD-10-PCS; principal; 2017-06-23 08:30)
DX: E87.1 Hypo-osmolality and hyponatremia (principal); M48.062 Spinal stenosis, lumbar region with neurogenic claudication; M47.816 Spondylosis without myelopathy or radiculopathy, lumbar region; F31.9 Bipolar disorder, unspecified; G89.18 Other acute postprocedural pain; R33.9 Retention of urine, unspecified; R32 Unspecified urinary incontinence; Z23 Encounter for immunization
CPT/HCPCS: 97112-GP; 97116-GP; 97161-GP; 97165-GO; 97530-GO; 97530-GP; 97535-GO; G0009; G8978-GP-CK; G8979-GP-CI; G8987-GO-CJ; G8987-GO-CL; G8988-GO-CJ; G8989-GO-CJ; J0171; J0690; J1580; J1650; J2250; J2405; J2597; J2704; J3010

== ENCOUNTER 2017-08-02 10:21 | Emergency (ER) | payer OTHER, MEDICARE ==
[2017-08-02] MEDS ORDERED: ONDANSETRON DISINTEGRATING 4 MG TAB ONE (10:42)
--- NOTE | 2017-08-02 10:47 | EDPHY ---
H & P Stated Complaint: fell getting out of bed l knee and l hip pain Time Seen by Provider: 08/02/17 10:29 HPI/ROS: CHIEF COMPLAINT: Left hip and knee pain HISTORY OF PRESENT ILLNESS: The patient presents the ED with complaints of acute left hip and knee pain that she developed after falling out of bed at 4 o' clock in the morning. The patient does have a prior history of a left knee replacement. She complains of moderate pain over her patella. She complains of some mild pain in her left hip. The patient did not strike her head or lose consciousness. The patient denies any acute headache, neck pain, chest pain or additional traumatic complaints. The patient denies any acute numbness or weakness. She denies antecedent palpitations or shortness of breath. REVIEW OF SYSTEMS: A comprehensive 10 point review of systems is otherwise negative aside from elements mentioned in the history of present illness. 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 bilat hip and knee surgery/ back surg - Social History Smoking Status: Former smoker Constitutional: Initial Vital Signs Temperature (C) 36.9 C 08/02/17 10:26 Heart Rate 81 08/02/17 10:26 Respiratory Rate 18 08/02/17 10:26 Blood Pressure 136/71 H 08/02/17 10:26 O2 Sat (%) 94 08/02/17 10:26 O2 Delivery Mode Room Air Allergies/Adverse Reactions: codeine Allergy (Verified 08/02/17 10:25) Itching Home Medications: Medication Instructions Recorded Carboxymethylcellulose 0.5% 1 drops EACHEYE DAILY PRN 06/22/17 [Refresh Plus Drops 0.5%] Erythromycin 0.5% 1 ping EACHEYE HS 06/22/17 Herbals/Supplements -Info Only 1 ea PO DAILY 06/22/17 Levothyroxine [Synthroid 50 mcg 50 mcg PO DAILY06 06/22/17 (*)] QUEtiapine FUMARATE [Seroquel 300 mg PO HS 06/22/17 300mg (*)] celeCOXIB [Celebrex (*)] 200 mg PO BID 06/22/17 clonazePAM [Klonopin (*)] 0.5 mg PO Q12H PRN 06/22/17 clonazePAM [Klonopin (*)] 0.5 mg PO QID 06/22/17 lamoTRIgine [LamICTAL 100 MG (*)] 400 mg PO HS 06/22/17 Enoxaparin [Lovenox 40 MG (*)] 40 mg SC DAILY syr 07/02/17 Medical Decision Making - Diagnostics EKG Interpretation: EKG: Complete interpretation has been separately recorded in the [facility] archive. Summary impression: Sinus rhythm, right bundle branch block. Imaging Results: Imaging Impressions Hip X-Ray 08/02/17 10:35 Impression: 1. Oblique mildly displaced fracture distal shaft left femur with some overlap as well. 2. No evidence of acute fracture about the pelvis with attention left hip with bilateral total hip replacements in good position. Knee X-Ray 08/02/17 10:35 Impression: 1. Oblique mildly displaced fracture distal shaft left femur with some overlap as well. 2. No evidence of acute fracture about the pelvis with attention left hip with bilateral total hip replacements in good position. Chest X-Ray 08/02/17 10:52 Impression: 1. No active cardiopulmonary disease seen. Extremity CT 08/02/17 11:25 Impression: Comminuted displaced angulated fracture of the distal femoral metaphysis. Postsurgical changes a left total knee arthroplasty. ED Course/Re-evaluation: The patient presents the ED with left leg pain following mechanical fall at home. She is noted to have a comminuted periprosthetic fracture involving the distal femur. I reviewed the patient's x-rays with her regular orthopedic surgeon Dr. Khalil the on-call orthopedic surgeon Dr. Emanuel Taylor who recommend that the patient be transferred to the [facility] as this is a complicated periprosthetic fracture which may require revision. I spoke with Dr. Mayfield the on-call orthopedic surgeon at the [facility] who has accepted the patient for admission pending bed availability at their hospital. The patient has been placed in a straight leg a knee immobilizer. A preoperative knee CT scan was ordered at the request of the admitting surgical service. The patient has finally received inpatient bed at 1:45 p.m.. She will be transferred for direct admission to the orthopedic service at the [facility] under the care of Dr. Mayfield. I have filled out the EMTALA transfer form. Differential Diagnosis: Differential diagnosis considered includes hip fracture, sprain, dislocation, periprosthetic fracture, arrhythmia, dehydration - Data Points Laboratory Results: Laboratory Results 08/02/17 11:25 08/02/17 11:25 08/02/17 08/02/17 11:25 11:25 WBC 12.81 10^3/uL H 10^3/uL (3.80-9.50) RBC 3.38 10^6/uL L 10^6/uL (4.18-5.33) Hgb 11.1 g/dL L g/dL (12.6-16.3) Hct 32.0 % L % (38.0-47.0) MCV 94.7 fL fL (81.5-99.8) MCH 32.8 pg pg (27.9-34.1) MCHC 34.7 g/dL g/dL (32.4-36.7) RDW 12.7 % % (11.5-15.2) Plt Count 276 10^3/uL 10^3/uL (150-400) MPV 9.6 fL fL (8.7-11.7) Neut % (Auto) 80.7 % H % (39.3-74.2) Lymph % (Auto) 10.1 % L % (15.0-45.0) [place] % (Auto) 8.3 % % (4.5-13.0) Eos % (Auto) 0.3 % L % (0.6-7.6) Baso % (Auto) 0.2 % L % (0.3-1.7) Nucleat RBC Rel Count 0.0 % % (0.0-0.2) Absolute Neuts (auto) 10.35 10^3/uL H 10^3/uL (1.70-6.50) Absolute Lymphs (auto) 1.29 10^3/uL 10^3/uL (1.00-3.00) Absolute Monos (auto) 1.06 10^3/uL H 10^3/uL (0.30-0.80) Absolute Eos (auto) 0.04 10^3/uL 10^3/uL (0.03-0.40) Absolute Basos (auto) 0.02 10^3/uL 10^3/uL (0.02-0.10) Absolute Nucleated RBC 0.00 10^3/uL 10^3/uL (0-0.01) Immature Gran % 0.4 % % (0.0-1.1) Immature Gran # 0.05 10^3/uL 10^3/uL (0.00-0.10) Sodium 131 mEq/L L mEq/L (135-145) Potassium 4.5 mEq/L mEq/L (3.3-5.0) Chloride 96 mEq/L L mEq/L (97-110) Carbon Dioxide 23 mEq/l mEq/l (22-31) Anion Gap 12 mEq/L mEq/L (8-16) BUN 21 mg/dL mg/dL (7-23) Creatinine 0.7 mg/dL mg/dL (0.6-1.0) Estimated GFR > 60 Glucose 124 mg/dL H mg/dL (70-100) Calcium 9.0 mg/dL mg/dL (8.5-10.4) Departure - Departure Disposition: Acute Care Hospital [facility] Clinical Impression: Periprosthetic fracture around prosthetic knee Qualifiers: Encounter type: initial encounter Laterality: left Qualified Code(s): M97.12XA - Periprosthetic fracture around internal prosthetic left knee joint, initial encounter; T84.043A - Periprosthetic fracture around internal prosthetic left knee joint, initial encounter Condition: Good Referrals: Fabien WILLIS [Primary Care Provider] - As per Instructions
--- NOTE | 2017-08-02 11:22 | CPEKG ---
Heart Rate: 67 RR Interval: 896 P-R Interval: 180 QRSD Interval: 128 QT Interval: 428 QTC Interval: 452 P [place]: 77 QRS [place]: 75 T Wave [place]: 18 EKG Severity - ABNORMAL ECG - EKG Impression: SINUS RHYTHM EKG Impression: RIGHT BUNDLE BRANCH BLOCK Electronically Signed By: Dell Ferguson 02-Aug-2017 12:48:46
[2017-08-02 11:36] LABS: PLATELET COUNT 276 10^3/uL (150-400)
[2017-08-02 14:09] VITALS: BP 137/73
[2017-08-02] MEDS ORDERED: ONDANSETRON 4 MG/2 ML VIAL ONE (15:43)
[2017-08-02] MEDS ORDERED: HYDROmorphONE/DILAUDID 1 MG/ML INJ ONE (15:44)
[2017-08-02] MEDS ORDERED: ONDANSETRON 4 MG/2 ML VIAL IVP ONE (15:46)
[2017-08-02] MEDS ORDERED: HYDROmorphONE/DILAUDID 2 MG/ML INJ IVP ONE ×2 (15:46→16:31)
== END 2017-08-02 16:35 | disposition short-term general hospital (02) ==
DX: M97.12XA Periprosthetic fracture around internal prosthetic left knee joint, initial encounter (principal); Z87.891 Personal history of nicotine dependence; W06.XXXA Fall from bed, initial encounter
CPT/HCPCS: 71045; 73502; 73560; 73700; 93005; 99285; J1170; J2405; L1830